=== PATIENT | male | born 1960 | race Caucasian/White ===

== ENCOUNTER 2022-08-12 17:56 | Emergency (ER) | payer SELFPAY ==
[~2022-08-12] VITALS: Ht 178 cm; Wt 66.0 kg
--- NOTE | 2022-08-12 18:09 | ED General ---
General Chief Complaint: Altered Mental Status Stated Complaint: AMS Source of Information: Patient, EMS Exam Limitations: No Limitations History of Present Illness Date Seen by Provider: Aug 12, 2022 Time Seen by Provider: 18:00 Initial Comments 62-year-old male arrives via EMS for reportedly being "in and out of consciousness." Unclear who called EMS at this time. On arrival EMS states the patient was alert, oriented and states he had a runny nose for about 10 days. On arrival he is tells me the same. He states he has a mild nonproductive cough as well. Unsure if he has had fevers or not. He is undomiciled and denies any recent sick contacts. No chest pain, shortness of breath. No change in bowel or bladder habits. Allergies and Home Medications Allergies Coded Allergies: No Known Drug Allergies (Unverified , 08/12/22) Patient Home Medication List Home Medication List Reviewed: Yes Review of Systems Review of Systems Constitutional: fever EENTM: nose congestion Respiratory: cough Cardiovascular: no symptoms reported Gastrointestinal: no symptoms reported Genitourinary: no symptoms reported Musculoskeletal: no symptoms reported Skin: no symptoms reported Psychiatric/Neurological: No Symptoms Reported Hematologic/Lymphatic: No Symptoms Reported Immunological/Allergic: no symptoms reported Past Ewwhgcc-Fjcrqu-Sobxev Hx Patient Social History Tobacco Use?: Yes Use of E-Cig and/or Vaping dev: No Substance use?: No Substance type: Hallucinogens Alcohol Use?: No Family Medical History Reviewed Nursing Family Hx No Pertinent Family Hx Physical Exam Vital Signs Vital Signs - First Documented 08/12/22 17:58 Temp 38.3 Pulse 109 Resp 20 B/P (MAP) 148/109 (122) Pulse Ox 95 O2 Delivery Room Air Capillary Refill : Height, Weight, BMI Height: '" Weight: lbs. oz. kg; BMI Method: General Appearance: No Apparent Distress, WD/WN, Other (Patient is alert, oriented to person place and time at this time. I do not see any evidence for confusion, altered consciousness) HEENT: PERRL/EOMI, TMs Normal, Normal ENT Inspection, Pharynx Normal Neck: Full Range of Motion, Normal Inspection, Non Tender, Supple Respiratory: Chest Non Tender, Lungs Clear, Normal Breath Sounds, No Accessory Muscle Use, No Respiratory Distress Cardiovascular: Regular Rate, Rhythm, No Edema, No Gallop, No JVD, No Murmur, Normal Peripheral Pulses Gastrointestinal: Normal Bowel Sounds, No Organomegaly, No Pulsatile Mass, Non Tender, Soft Neurologic/Psychiatric: Alert, Oriented x3, No Motor/Sensory Deficits Skin: Normal Color, Warm/Dry Lymphatic: No Adenopathy Focused Exam Lactate Level 08/12/22 18:10: Lactic Acid Level 1.29 Lactic Acid Level Laboratory Tests Test 08/12/22 18:10 Lactic Acid Level 1.29 MMOL/L (0.50-2.00) Progress/Results/Core Measures Suspected Sepsis SIRS Temperature: Pulse: Respiratory Rate: Laboratory Tests 08/12/22 18:10: White Blood Count 9.1 Blood Pressure / Mean: 08/12/22 18:10: Lactic Acid Level 1.29 Laboratory Tests 08/12/22 18:10: Creatinine 0.77, Platelet Count 250, Total Bilirubin 0.6 Results/Orders Lab Results Laboratory Tests Test 08/12/22 18:02 08/12/22 18:10 08/12/22 18:53 Range/Units Influenza Type A (RT-PCR) Not Detected Not Detecte Influenza Type B (RT-PCR) Not Detected Not Detecte SARS-CoV-2 RNA (RT-PCR) Not Detected Not Detecte White Blood Count 9.1 4.3-11.0 10^3/uL Red Blood Count 4.56 4.30-5.52 10^6/uL Hemoglobin 14.1 13.3-17.7 g/dL Hematocrit 43 40-54 % Mean Corpuscular Volume 95 80-99 fL Mean Corpuscular Hemoglobin 31 25-34 pg Mean Corpuscular Hemoglobin Concent 33 32-36 g/dL Red Cell Distribution Width 12.1 10.0-14.5 % Platelet Count 250 130-400 10^3/uL Mean Platelet Volume 9.5 9.0-12.2 fL Immature Granulocyte % (Auto) 0 % Neutrophils (%) (Auto) 91 H 42-75 % Lymphocytes (%) (Auto) 5 L 12-44 % Monocytes (%) (Auto) 4 0-12 % Eosinophils (%) (Auto) 0 0-10 % Basophils (%) (Auto) 0 0-10 % Neutrophils # (Auto) 8.3 H 1.8-7.8 10^3/uL Lymphocytes # (Auto) 0.4 L 1.0-4.0 10^3/uL Monocytes # (Auto) 0.4 0.0-1.0 10^3/uL Eosinophils # (Auto) 0.0 0.0-0.3 10^3/uL Basophils # (Auto) 0.0 0.0-0.1 10^3/uL Immature Granulocyte # (Auto) 0.0 0.0-0.1 10^3/uL Neutrophils % (Manual) 87 % Lymphocytes % (Manual) 7 % Monocytes % (Manual) 1 % Band Neutrophils 5 % Platelet Estimate NORMAL Clumped Platelets FEW Blood Morphology Comment NORMAL Sodium Level 136 135-145 MMOL/L Potassium Level 3.8 3.6-5.0 MMOL/L Chloride Level 102 98-107 MMOL/L Carbon Dioxide Level 28 21-32 MMOL/L Anion Gap 6 5-14 MMOL/L Blood Urea Nitrogen 17 7-18 MG/DL Creatinine 0.77 0.60-1.30 MG/DL Estimat Glomerular Filtration Rate 101 BUN/Creatinine Ratio 22 Glucose Level 111 H 70-105 MG/DL Lactic Acid Level 1.29 0.50-2.00 MMOL/L Calcium Level 9.3 8.5-10.1 MG/DL Corrected Calcium 9.6 8.5-10.1 MG/DL Total Bilirubin 0.6 0.1-1.0 MG/DL Aspartate Amino Transf (AST/SGOT) 45 H 5-34 U/L Alanine Aminotransferase (ALT/SGPT) 44 0-55 U/L Alkaline Phosphatase 62 40-136 U/L Total Protein 7.2 6.4-8.2 GM/DL Albumin 3.6 3.2-4.5 GM/DL Urine Color YELLOW Urine Clarity CLEAR Urine pH 8.0 5-9 Urine Specific [place] 1.015 L 1.016-1.022 Urine Protein NEGATIVE NEGATIVE Urine Glucose (UA) NEGATIVE NEGATIVE Urine Ketones NEGATIVE NEGATIVE Urine Nitrite NEGATIVE NEGATIVE Urine Bilirubin NEGATIVE NEGATIVE Urine Urobilinogen 2.0 < = 1.0 MG/DL Urine Leukocyte Esterase NEGATIVE NEGATIVE Urine RBC (Auto) NEGATIVE NEGATIVE Urine RBC RARE /HPF Urine WBC RARE /HPF Urine Squamous Epithelial Cells NONE /HPF Urine Crystals NONE /LPF Urine Bacteria NEGATIVE /HPF Urine Casts NONE /LPF Urine Mucus NEGATIVE /LPF Urine Culture Indicated NO My Orders Orders - EMY YOUNG DO Comprehensive Metabolic Panel (08/12/22 18:04) Covid 19 Inhouse Test (08/12/22 18:04) Lactic Acid Analyzer (08/12/22 18:04) Cbc With Automated Diff (08/12/22 18:04) Influenza A And B By Pcr (08/12/22 18:04) Ns Iv 1000 Ml (Sodium Chloride 0.9%) (08/12/22 18:15) Acetaminophen Tablet (Tylenol Tablet) (08/12/22 18:15) Chest 1 View, Ap/Pa Only (08/12/22 18:09) Manual Differential (08/12/22 18:10) Ua Culture If Indicated (08/12/22 18:33) Ceftriaxone 1 Gm Pre-Mix (Rocephin 1 Gm (08/12/22 19:00) Ct Chest W (08/12/22 18:52) Iohexol Injection (Omnipaque 350 Mg/Ml 1 (08/12/22 19:00) Received Contrast (Hold Metformin- Contr (08/12/22 19:00) Ns (Ivpb) (Sodium Chloride 0.9% Ivpb Bag (08/12/22 19:00) Sodium Chloride Flush (Catheter Flush Sy (08/12/22 19:00) Medications Given in ED Current Medications Medications Dose Ordered Sig/Moody Route Start Time Stop Time Status Last Admin Dose Admin Acetaminophen 1,000 mg ONCE ONCE PO 08/12/22 18:15 08/12/22 18:16 DC 08/12/22 18:13 1,000 MG Iohexol 75 ml ONCE ONCE IV 08/12/22 19:00 08/12/22 19:06 DC 08/12/22 19:15 74 ML Sodium Chloride 10 ml NEEDED PRN IV 08/12/22 19:00 08/12/22 19:15 10 ML Sodium Chloride 100 ml ONCE ONCE IV 08/12/22 19:00 08/12/22 19:06 DC 08/12/22 19:15 80 ML Vital Signs/I&O 08/12/22 17:58 Temp 38.3 Pulse 109 Resp 20 B/P (MAP) 148/109 (122) Pulse Ox 95 O2 Delivery Room Air Capillary Refill : Diagnostic Imaging Diagonstic Imaging: CT Plain Films/CT/US/NM/MRI: chest Comments [facility] [place], [place] NAME: [facility] REC#: [id number] PT STATUS: REG ER : 1960 PHYSICIAN: EMY YOUNG DO ADMIT DATE: 08/12/22/ER Draft Date of Exam:08/12/22 CT CHEST W PROCEDURE: CT chest with contrast only. TECHNIQUE: Multiple contiguous axial images were obtained through the chest after administration of intravenous contrast. Auto Exposure Controls were utilized during the CT exam to meet ALARA standards for radiation dose reduction. INDICATION: Right lung density on chest radiograph. Cough. COMPARISON: Chest radiograph from earlier same day FINDINGS: Rounded consolidation is identified within the posterior lateral and inferior margins of the right upper lobe. It borders the major and minor fissures. It measures 3.5 x 3.5 cm in axial dimension and extends 5.7 cm in cc dimension. Overall appearance is most suggestive of rounded pneumonia, although underlying pulmonary nodule or mass may be obscured. Remainder of the lungs are clear. No large effusion or pneumothorax is seen on either side. No other suspicious pulmonary nodules or masses are seen. Cardiomediastinal structures show normal heart size. There is no large pericardial effusion. Large hiatal hernia is noted. No pathologically enlarged or morphologically abnormal adenopathy is seen within the mediastinum, omega, nor axilla. Osseous structures show no acute abnormalities. No lytic or blastic bony lesions are seen. Included portions of the upper abdomen show punctate nonobstructive right renal calculus. IMPRESSION: 1. Focal density of the right upper lobe is identified and corresponds to opacity seen on chest radiograph from earlier same day. CT appearance is most suggestive of rounded pneumonia, although underlying pulmonary nodule or mass may be obscured. Follow-up to resolution is recommended. 2. Punctate nonobstructive right renal calculus. 3. Moderate hiatal hernia. Departure Communication (Admissions) Patient is hemodynamically stable, nontoxic. He has a nodular density in his right middle lobe, pneumonia versus mass was quite large on chest x-ray. I obtained a CT scan to confirm and it does appear to be a nodular pneumonia and not malignancy. Given antibiotics here and discharged home with oral antibiotics for community-acquired pneumonia. No evidence for PE, pneumothorax, cardiac origin. COVID flu negative. Impression Primary Impression: Community acquired pneumonia Qualified Codes: J18.9 - Pneumonia, unspecified organism Disposition: 01 HOME, SELF-CARE Condition: Stable Departure-Patient Inst. Referrals: NO,LOCAL PHYSICIAN (PCP/Family) Primary Care Physician Patient Instructions: Pneumonia, Adult (DC) Add. Discharge Instructions: Take the antibiotics as prescribed until they are gone. Use Motrin and Tylenol as needed for fevers, discomfort. Return to the emergency department for any severe shortness of breath or if your symptoms change in any other way concerning to you. All discharge instructions reviewed with patient and/or family. Voiced understanding. Scripts Ciprofloxacin HCl (Ciprofloxacin HCl) 500 Mg Tablet 500 MG PO TID for 7 Days, #21 TAB Prov: EMY YOUNG DO 08/12/22 EMY YOUNG DO Aug 12, 2022 18:09
[2022-08-12] MEDS ORDERED: ACETAMINOPHEN 500 MG TAB (TYLENOL) PO ONE (18:15)
[2022-08-12] MEDS ORDERED: NS IV 1000 ML 1,000 ML IV SCH (18:15)
[2022-08-12 18:24] LABS: BASOPHILS % (AUTO) 0 % (0-10); EOSINOPHILS % (AUTO) 0 % (0-10); HEMATOCRIT 43 % (40-54); HEMOGLOBIN 14.1 g/dL (13.3-17.7); LYMPHOCYTES # (AUTO) 0.4 10^3/uL (1.0-4.0); LYMPHOCYTES % (AUTO) 5 % (12-44); MEAN CORPUSCULAR HEMOGLOBIN 31 pg (25-34); MEAN CORPUSCULAR HGB CONC 33 g/dL (32-36); MEAN CORPUSCULAR VOLUME 95 fL (80-99); MEAN PLATELET VOLUME 9.5 fL (9.0-12.2); MONOCYTES # (AUTO) 0.4 10^3/uL (0.0-1.0); MONOCYTES % (AUTO) 4 % (0-12); NEUTROPHILS # (AUTO) 8.3 10^3/uL (1.8-7.8); NEUTROPHILS % (AUTO) 91 % (42-75); PLATELET COUNT 250 10^3/uL (130-400); WHITE BLOOD COUNT 9.1 10^3/uL (4.3-11.0)
[2022-08-12 18:32] LABS: ALBUMIN 3.6 GM/DL (3.2-4.5); POTASSIUM 3.8 MMOL/L (3.6-5.0)
[2022-08-12 18:34] LABS: CALCIUM 9.3 MG/DL (8.5-10.1)
[2022-08-12 18:35] LABS: TOTAL PROTEIN 7.2 GM/DL (6.4-8.2)
[2022-08-12 18:37] LABS: BILIRUBIN,TOTAL 0.6 MG/DL (0.1-1.0)
[2022-08-12 18:38] LABS: CREATININE SERUM 0.77 MG/DL (0.60-1.30)
--- NOTE | 2022-08-12 18:41 | Diagnostic Imaging Report ---
INDICATION: Cough. Fever. COMPARISON: None FINDINGS: Single frontal radiographic view of the chest was obtained and shows normal cardiac silhouette and pulmonary vasculature. There is masslike opacity projecting over the lateral right midlung that measures 5 x 6.3 cm. Left lung is relatively clear. There is no large effusion or pneumothorax on either side. Osseous structures show no gross acute abnormalities. IMPRESSION: 1. Masslike opacity projecting over the lateral right midlung. This could be on the basis of rounded pneumonia. Soft tissue mass is also within differential. Follow-up to resolution is advised. Dictated by: Dictated on workstation # [id number]
[2022-08-12 18:55] LABS: BAND NEUTROPHILS 5 %; LYMPHOCYTES % (MANUAL) 7 %; MONOCYTES % (MANUAL) 1 %; NEUTROPHILS % (MANUAL) 87 %; PLATELET CLUMPS FEW; PLATELET ESTIMATE NORMAL; RBC MORPH NORMAL
[2022-08-12 18:59] LABS: BILIRUBIN,URINE NEGATIVE (NEGATIVE); CLARITY,URINE CLEAR; COLOR,URINE YELLOW; GLUCOSE, URINE (UA) NEGATIVE (NEGATIVE); KETONES,URINE NEGATIVE (NEGATIVE); LEUKOCYTE ESTERASE ,URINE NEGATIVE (NEGATIVE); NITRITE,URINE NEGATIVE (NEGATIVE); PROTEIN,URINE NEGATIVE (NEGATIVE)
[2022-08-12] MEDS ORDERED: HOLD METFORMIN - RECEIVED CONTRAST 20 ML VIAL IV SCH (19:00)
[2022-08-12] MEDS ORDERED: cefTRIAXone 1 GM PRE-MIX 50 ML IV ONE (19:00)
[2022-08-12] MEDS ORDERED: NS 100 ML (IVPB) BAG IV ONE (19:00)
[2022-08-12] MEDS ORDERED: CATHETER FLUSH 10 ML SYR IV PRN (19:00)
[2022-08-12] MEDS ORDERED: IOHEXOL 350 MG/ML 100 ML (OMNIPAQUE 350) VIAL IV ONE (19:00)
[2022-08-12 19:06] LABS: BACTERIA,URINE NEGATIVE /HPF; RBC,URINE RARE /HPF; WBC,URINE RARE /HPF
--- NOTE | 2022-08-12 19:37 | Diagnostic Imaging Report ---
PROCEDURE: CT chest with contrast only. TECHNIQUE: Multiple contiguous axial images were obtained through the chest after administration of intravenous contrast. Auto Exposure Controls were utilized during the CT exam to meet ALARA standards for radiation dose reduction. INDICATION: Right lung density on chest radiograph. Cough. COMPARISON: Chest radiograph from earlier same day FINDINGS: Rounded consolidation is identified within the posterior lateral and inferior margins of the right upper lobe. It borders the major and minor fissures. It measures 3.5 x 3.5 cm in axial dimension and extends 5.7 cm in cc dimension. Overall appearance is most suggestive of rounded pneumonia, although underlying pulmonary nodule or mass may be obscured. Remainder of the lungs are clear. No large effusion or pneumothorax is seen on either side. No other suspicious pulmonary nodules or masses are seen. Cardiomediastinal structures show normal heart size. There is no large pericardial effusion. Large hiatal hernia is noted. No pathologically enlarged or morphologically abnormal adenopathy is seen within the mediastinum, omega, nor axilla. Osseous structures show no acute abnormalities. No lytic or blastic bony lesions are seen. Included portions of the upper abdomen show punctate nonobstructive right renal calculus. IMPRESSION: 1. Focal density of the right upper lobe is identified and corresponds to opacity seen on chest radiograph from earlier same day. CT appearance is most suggestive of rounded pneumonia, although underlying pulmonary nodule or mass may be obscured. Follow-up to resolution is recommended. 2. Punctate nonobstructive right renal calculus. 3. Moderate hiatal hernia. Dictated by: Dictated on workstation # [id number]
[2022-08-12] MEDS ORDERED: CIPR500T5 PO (19:46)
[2022-08-12 20:09] VITALS: BP 106/63
== END 2022-08-12 20:09 | disposition home or self-care (01) ==
LOC: EDUNIT# 17:56 → ER 17:58
DX: J18.9 Pneumonia, unspecified organism (principal); Z72.0 Tobacco use; Z20.822 Contact with and (suspected) exposure to COVID-19
CPT/HCPCS: 36415; 71045; 71260; 80053; 81000; 83605; 85007; 85027; 87636

== ENCOUNTER 2022-10-02 15:53 | Inpatient (IN) | payer OTHER ==
[~2022-10-02] VITALS: Ht 180.3 cm; Wt 70.7 kg
[~2022-10-02 15:53] MED LIST: CIPR500T5 PO
--- NOTE | 2022-10-02 16:15 | ED Chest Pain ---
General Chief Complaint: Chest Pain Stated Complaint: CHEST PAIN/TIGHTNESS,SOA Nursing Triage Note: ARRIVED VIA AMB WITH COMPLAINTS OF CHEST PAIN X1 HR THAT RADIATES INTO BACK. PT IS HOMELESS. (KAPIL SORIANO MD) History of Present Illness Date Seen by Provider: Oct 02, 2022 Time Seen by Provider: 16:14 Initial Comments 62-year-old male with PMH of homelessness, is here with complaints of right- sided chest pain that radiates to the left side of the chest and to the right side of the back. Pain began late today afternoon. Denies fever, diarrhea, abdominal pain. Patient also has associated cough and postnasal drip and congestion. Patient denies smoking. Patient states that he walks a lot and is outside all day due to homelessness. Patient reports that when he presses on his chest wall it feels sore. (KAPIL SORIANO MD) Allergies and Home Medications Allergies Coded Allergies: Penicillins (Verified Allergy, Unknown, 10/02/22) Patient Home Medication List Home Medication List Reviewed: Yes (KAPIL SORIANO MD) Ciprofloxacin HCl (Ciprofloxacin HCl) 500 Mg Tablet, 500 MG PO TID Prescribed by: EMY YOUNG MD on 08/12/221945 Review of Systems Review of Systems Constitutional: malaise EENTM: Nose Congestion Respiratory: No Symptoms Reported Cardiovascular: Chest Pain Gastrointestinal: No Symptoms Reported Genitourinary: No Symptoms Reported Musculoskeletal: no symptoms reported Skin: no symptoms reported Psychiatric/Neurological: No Symptoms Reported Endocrine: No Symptoms Reported Hematologic/Lymphatic: No Symptoms Reported (KAPIL SORIANO MD) Past Bcohdht-Hyjrrx-Dbpoff Hx Patient Social History Tobacco Use?: No Substance use?: No Alcohol Use?: Yes Alcohol Frequency: Couple times a week (KPAIL SORIANO MD) Immunizations Up To Date First/Initial COVID19 Vaccinat: UNKNOWN COVID19 Vaccine Presentation Manager: UNKNOWN (KAPIL SORIANO MD) Past Medical History Surgery/Hospitalization HX: STATES HYPOGLYCEMIA, HERNIA (KAPIL SORIANO MD) Family Medical History No Pertinent Family Hx (KAPIL SORIANO MD) Physical Exam Vital Signs Vital Signs - First Documented 10/02/22 15:58 Temp 36.3 Pulse 75 Resp 16 B/P (MAP) 122/87 (99) Pulse Ox 94 O2 Delivery Room Air (JORGE,ALEJANDRA K DO) Vital Signs Capillary Refill : Less Than 3 Seconds (KAPIL SORIANO MD) Height, Weight, BMI Height: '" Weight: lbs. oz. kg; 20.00 BMI Method: General Appearance: No Apparent Distress, WD/WN HEENT: PERRL/EOMI, Normal ENT Inspection Neck: Full Range of Motion, Normal Inspection, Non Tender Respiratory: Lungs Clear, Normal Breath Sounds, No Accessory Muscle Use, Other (Chest wall tenderness to the right and left 10th 11th 12th intercostal spaces) Cardiovascular: Regular Rate, Rhythm, No Edema, No Murmur Gastrointestinal: Normal Bowel Sounds, Non Tender, Soft Extremity: Normal Range of Motion Neurologic/Psychiatric: Alert, Oriented x3, No Motor/Sensory Deficits, Normal Mood/Affect, space engineer II-XII Norm as Tested Skin: Normal Color (KAPIL SORIANO MD) Progress/Results/Core Measures Results/Orders Lab Results Laboratory Tests Test 10/02/22 16:20 10/02/22 16:58 10/02/22 17:18 Range/Units White Blood Count 4.2 L 4.3-11.0 10^3/uL Red Blood Count 4.16 L 4.30-5.52 10^6/uL Hemoglobin 12.6 L 13.3-17.7 g/dL Hematocrit 38 L 40-54 % Mean Corpuscular Volume 92 80-99 fL Mean Corpuscular Hemoglobin 30 25-34 pg Mean Corpuscular Hemoglobin Concent 33 32-36 g/dL Red Cell Distribution Width 12.1 10.0-14.5 % Platelet Count 236 130-400 10^3/uL Mean Platelet Volume 9.5 9.0-12.2 fL Immature Granulocyte % (Auto) 1 % Neutrophils (%) (Auto) 50 42-75 % Lymphocytes (%) (Auto) 39 12-44 % Monocytes (%) (Auto) 11 0-12 % Eosinophils (%) (Auto) 0 0-10 % Basophils (%) (Auto) 0 0-10 % Neutrophils # (Auto) 2.1 1.8-7.8 10^3/uL Lymphocytes # (Auto) 1.6 1.0-4.0 10^3/uL Monocytes # (Auto) 0.4 0.0-1.0 10^3/uL Eosinophils # (Auto) 0.0 0.0-0.3 10^3/uL Basophils # (Auto) 0.0 0.0-0.1 10^3/uL Immature Granulocyte # (Auto) 0.0 0.0-0.1 10^3/uL Prothrombin Time 13.1 12.2-14.7 SEC INR Comment 0.9 0.8-1.4 Activated Partial Thromboplast Time 31 24-35 SEC D-Dimer 4.83 H 0.00-0.49 UG/ML Sodium Level 139 135-145 MMOL/L Potassium Level 4.0 3.6-5.0 MMOL/L Chloride Level 108 H 98-107 MMOL/L Carbon Dioxide Level 23 21-32 MMOL/L Anion Gap 8 5-14 MMOL/L Blood Urea Nitrogen 25 H 7-18 MG/DL Creatinine 0.76 0.60-1.30 MG/DL Estimat Glomerular Filtration Rate 102 BUN/Creatinine Ratio 33 Glucose Level 107 H 70-105 MG/DL Calcium Level 8.7 8.5-10.1 MG/DL Corrected Calcium 9.3 8.5-10.1 MG/DL Magnesium Level 2.1 1.6-2.4 MG/DL Total Bilirubin 0.2 0.1-1.0 MG/DL Aspartate Amino Transf (AST/SGOT) 37 H 5-34 U/L Alanine Aminotransferase (ALT/SGPT) 37 0-55 U/L Alkaline Phosphatase 60 40-136 U/L Troponin I 0.088 H <0.028 NG/ML Total Protein 6.0 L 6.4-8.2 GM/DL Albumin 3.2 3.2-4.5 GM/DL Influenza Type A (RT-PCR) Not Detected Not Detecte Influenza Type B (RT-PCR) Not Detected Not Detecte SARS-CoV-2 RNA (RT-PCR) Not Detected Not Detecte Urine Color YELLOW Urine Clarity CLEAR Urine pH 6.5 5-9 Urine Specific [place] 1.025 H 1.016-1.022 Urine Protein NEGATIVE NEGATIVE Urine Glucose (UA) NEGATIVE NEGATIVE Urine Ketones NEGATIVE NEGATIVE Urine Nitrite NEGATIVE NEGATIVE Urine Bilirubin NEGATIVE NEGATIVE Urine Urobilinogen 4.0 < = 1.0 MG/DL Urine Leukocyte Esterase NEGATIVE NEGATIVE Urine RBC (Auto) NEGATIVE NEGATIVE Urine RBC RARE /HPF Urine WBC RARE /HPF Urine Squamous Epithelial Cells 0-2 /HPF Urine Crystals NONE /LPF Urine Bacteria TRACE /HPF Urine Casts NONE /LPF Urine Mucus SMALL H /LPF Urine Culture Indicated NO Urine Opiates Screen NEGATIVE NEGATIVE Urine Oxycodone Screen NEGATIVE NEGATIVE Urine Methadone Screen NEGATIVE NEGATIVE Urine Propoxyphene Screen NEGATIVE NEGATIVE Urine Barbiturates Screen NEGATIVE NEGATIVE Ur Tricyclic Antidepressants Screen NEGATIVE NEGATIVE Urine Phencyclidine Screen NEGATIVE NEGATIVE Urine Amphetamines Screen POSITIVE H NEGATIVE Urine Methamphetamines Screen POSITIVE H NEGATIVE Urine Benzodiazepines Screen NEGATIVE NEGATIVE Urine Cocaine Screen NEGATIVE NEGATIVE Urine Cannabinoids Screen NEGATIVE NEGATIVE (ALEJANDRA SOUSA DO) My Orders Orders - ALEJANDRA SOUSA DO Troponin I Mikael (10/02/22 19:18) (ALEJANDRA SOUSA DO) Medications Given in ED Current Medications Medications Dose Ordered Sig/Moody Route Start Time Stop Time Status Last Admin Dose Admin Aspirin 324 mg ONCE ONCE PO 10/02/22 16:45 10/02/22 16:53 DC 10/02/22 17:09 324 MG Iohexol 100 ml ONCE ONCE IV 10/02/22 18:30 10/02/22 18:31 DC 10/02/22 18:44 67 ML Sodium Chloride 100 ml ONCE ONCE IV 10/02/22 18:30 10/02/22 18:31 DC 10/02/22 18:44 80 ML (ALEJANDRA SOUSA DO) Vital Signs/I&O 10/02/22 15:58 Temp 36.3 Pulse 75 Resp 16 B/P (MAP) 122/87 (99) Pulse Ox 94 O2 Delivery Room Air (ALEJANDRA SOUSA DO) Blood Pressure Mean: 99 Progress Progress Note : Progress Note Seen Dr. Dr. Sousa for follow-up of second troponin and CTA chest 1. ACS RULE OUT: - CXR: No acute finding - Troponin: 0.088, awaiting 2nd one - EKG x 2: no ischemic changes - CBC/ CMP unremarkable -COVID Test/rapid flu test: Negative - ASA 324mg STAT 2. ELEVATED D-DIMER: - D-dimer is 4.83 - CTA CHEST ordered 3. METHAMPHETAMINE POSITIVE: - UDS: Positive for methamphetamines -This can cause and trigger chest pain as well (KAPIL SORIANO MD) Progress Note : Progress Note 1844--ASSUMED CARE OF PT AT SHIFT CHANGE. CT PENDING. PT IS PAIN-FREE. PT HAS RECEIVED ASPIRIN, BUT NO OTHER MEDICATIONS REVIEWED ALL TEST RESULTS, NEED FOR ADMIT FOR FURTHER CARDIAC EVALUATION. PT REMAINS QUIET AND COOPERATIVE FOR ENTIRE ER STAY. NO DETERIORATION IN PT'S CONDITION DURING ER STAY. PT HAS NO COMPLAINTS OF CHEST PAIN AT ANY TIME,. DURING MY CARE OF HIM. (ALEJANDRA SOUSA DO) Initial ECG Impression Date: Oct 02, 2022 Initial ECG Impression Time: 16:01 Initial ECG Rate: 75 Initial ECG Rhythm: Normal Sinus EKG : EKG Time: 18:28 Rate: 55 Rhythm: Normal Sinus ECG Comparisson: Unchanged (ALEJANDRA SOUSA DO) Diagnostic Imaging Diagonstic Imaging: Xray Plain Films/CT/US/NM/MRI: chest Comments [facility] [place], [place] NAME: [facility] REC#: [id number] PT STATUS: REG ER : 1960 PHYSICIAN: KAPIL SORIANO MD ADMIT DATE: 10/02/22/ER Signed Date of Exam:10/02/22 CHEST 1 VIEW, AP/PA ONLY INDICATION: Chest pain. TECHNIQUE: Single view chest 5:05 PM. CORRELATION STUDY: 08/12/2022 FINDINGS: The heart size, mediastinal configuration and pulmonary vascularity are within normal limits. The previously demonstrated rounded opacity lateral aspect of the right mid to lower lung field has essentially resolved. Lungs appear generally clear at follow-up. IMPRESSION: 1. Negative appearing single view chest. Dictated by: Dictated on workstation # [id number] Dict: 10/02/221716 Trans: 10/02/221717 DO [id number] Interpreted by: BARBARA BARNETT DO Electronically signed by: BARBARA BARNETT DO 10/02/221717 (KAPIL SORIANO MD) Comments CXR--PER RADIOLOGIST REPORT PRIOR TO MY ARRIVAL FINDINGS: The heart size, mediastinal configuration and pulmonary vascularity are within normal limits. The previously demonstrated rounded opacity lateral aspect of the right mid to lower lung field has essentially resolved. Lungs appear generally clear at follow-up. IMPRESSION: 1. Negative appearing single view chest. CT CHEST ANGIOGRAM--PER RADIOLOGIST REPORT AT 1851 FINDINGS: Vascular: No filling defects within the pulmonary arteries. Thoracic aorta is normal in caliber. Calcification of the aorta and coronary vessels. Thyroid: The thyroid is normal. Mediastinum: Heart size is normal without significant pericardial effusion. No suspicious lymphadenopathy. Lungs and airways: The lungs are clear without consolidation, pleural effusion, or pneumothorax. There is mild atelectasis in the dependent lungs. The airways are normal. Upper abdomen: There is a moderate hiatal hernia. Musculoskeletal: Degenerative changes of the spine without suspicious osseous lesion or compression fracture. IMPRESSION: 1. No findings of pulmonary embolus or other acute abnormality in the chest. Reviewed: Reviewed by Me (ALEJANDRA SOUSA DO) Departure Communication (Admissions) 1932--PAGING DR. DECKER, OSTEOLOGIST 1938--SPOKE WITH DR. ALVAREZ, MANAGER [facility] FOR [facility] – [place]. ACCEPTS PT FOR ADMIT. 1942--SPOKE WITH DR. DECKER, HE WILL SEE PT IN CONSULT. ORDERS NOTED FOR ASPI RIN, PLAVIX AND TOPROL. (ALEJANDRA SOUSA DO) Impression Primary Impression: Chest pain Additional Impressions: Elevated d-dimer Methamphetamine abuse Elevated troponin Homelessness Disposition: ADMITTED INPATIENT Condition: Stable Admissions Decision to Admit Reason: Admit from ER (General) Decision to Admit/Date: Oct 02, 2022 Time/Decision to Admit Time: 19:40 (ALEJANDRA SOUSA DO) Departure-Patient Inst. Referrals: NO,LOCAL PHYSICIAN (PCP/Family) Primary Care Physician KAPIL SORIANO MD Oct 02, 2022 16:15 ALEJANDRA SOUSA DO Oct 02, 2022 19:38
[2022-10-02] MEDS ORDERED: ASPIRIN 81 MG CHEW (CHILDREN'S ASA) PO ONE (16:45)
[2022-10-02 17:00] LABS: BASOPHILS % (AUTO) 0 % (0-10); EOSINOPHILS % (AUTO) 0 % (0-10); HEMATOCRIT 38 % (40-54); HEMOGLOBIN 12.6 g/dL (13.3-17.7); LYMPHOCYTES # (AUTO) 1.6 10^3/uL (1.0-4.0); LYMPHOCYTES % (AUTO) 39 % (12-44); MEAN CORPUSCULAR HEMOGLOBIN 30 pg (25-34); MEAN CORPUSCULAR HGB CONC 33 g/dL (32-36); MEAN CORPUSCULAR VOLUME 92 fL (80-99); MEAN PLATELET VOLUME 9.5 fL (9.0-12.2); MONOCYTES # (AUTO) 0.4 10^3/uL (0.0-1.0); MONOCYTES % (AUTO) 11 % (0-12); NEUTROPHILS # (AUTO) 2.1 10^3/uL (1.8-7.8); NEUTROPHILS % (AUTO) 50 % (42-75); PLATELET COUNT 236 10^3/uL (130-400); WHITE BLOOD COUNT 4.2 10^3/uL (4.3-11.0)
[2022-10-02 17:04] LABS: ALBUMIN 3.2 GM/DL (3.2-4.5)
[2022-10-02 17:05] LABS: CALCIUM 8.7 MG/DL (8.5-10.1)
[2022-10-02 17:07] LABS: INR 0.9 (0.8-1.4); PROTHROMBIN TIME PATIENT 13.1 SEC (12.2-14.7)
[2022-10-02 17:08] LABS: BILIRUBIN,TOTAL 0.2 MG/DL (0.1-1.0)
[2022-10-02 17:10] LABS: CREATININE SERUM 0.76 MG/DL (0.60-1.30)
[2022-10-02 17:13] LABS: MAGNESIUM 2.1 MG/DL (1.6-2.4)
--- NOTE | 2022-10-02 17:19 | Diagnostic Imaging Report ---
INDICATION: Chest pain. TECHNIQUE: Single view chest 5:05 PM. CORRELATION STUDY: 08/12/2022 FINDINGS: The heart size, mediastinal configuration and pulmonary vascularity are within normal limits. The previously demonstrated rounded opacity lateral aspect of the right mid to lower lung field has essentially resolved. Lungs appear generally clear at follow-up. IMPRESSION: 1. Negative appearing single view chest. Dictated by: Dictated on workstation # [id number]
[2022-10-02 17:34] LABS: BILIRUBIN,URINE NEGATIVE (NEGATIVE); CLARITY,URINE CLEAR; COLOR,URINE YELLOW; GLUCOSE, URINE (UA) NEGATIVE (NEGATIVE); KETONES,URINE NEGATIVE (NEGATIVE); LEUKOCYTE ESTERASE ,URINE NEGATIVE (NEGATIVE); NITRITE,URINE NEGATIVE (NEGATIVE); PH,URINE 6.5 (5-9); PROTEIN,URINE NEGATIVE (NEGATIVE)
[2022-10-02 17:48] LABS: BACTERIA,URINE TRACE /HPF; RBC,URINE RARE /HPF; SQUAMOUS EPITHELIAL CELL,UR 0-2 /HPF; WBC,URINE RARE /HPF
[2022-10-02 17:59] LABS: AMPHETAMINE SCREEN, URINE POSITIVE (NEGATIVE); BARBITURATE SCREEN URINE NEGATIVE (NEGATIVE); BENZODIAZEPINES SCREEN URINE NEGATIVE (NEGATIVE); CANNABINOID SCREEN, URINE NEGATIVE (NEGATIVE); COCAINE SCREEN URINE NEGATIVE (NEGATIVE); METHADONE STAT NEGATIVE (NEGATIVE); OPIATE SCREEN URINE NEGATIVE (NEGATIVE); OXYCODONE STAT NEGATIVE (NEGATIVE); PROPOXYPHENE STAT NEGATIVE (NEGATIVE); TRICYCLIC ANTIDEPRESSANTS SCRE NEGATIVE (NEGATIVE)
[2022-10-02] MEDS ORDERED: IOHEXOL 350 MG/ML 100 ML (OMNIPAQUE 350) VIAL IV ONE (18:30)
[2022-10-02] MEDS ORDERED: HOLD METFORMIN - RECEIVED CONTRAST 20 ML VIAL IV SCH (18:30)
[2022-10-02] MEDS ORDERED: NS 100 ML (IVPB) BAG IV ONE (18:30)
--- NOTE | 2022-10-02 18:51 | Diagnostic Imaging Report ---
EXAMINATION: CT angiography of the chest. TECHNIQUE: Contrast-enhanced thin section helical images were obtained through the chest with intravenous contrast timed for the optimal opacification of the arterial structures per CTA protocol. Post-processing, reconstructions and interpretation of angiographic images of the vessels was performed. 3D MIP reconstructions were performed and reviewed. All CT scans use one or more of the following dose optimizing techniques: Automated exposure control, MA and/or KvP adjustment based on a patient size and exam type, or iterative reconstruction. HISTORY: Chest pain. COMPARISON: None available. FINDINGS: Vascular: No filling defects within the pulmonary arteries. Thoracic aorta is normal in caliber. Calcification of the aorta and coronary vessels. Thyroid: The thyroid is normal. Mediastinum: Heart size is normal without significant pericardial effusion. No suspicious lymphadenopathy. Lungs and airways: The lungs are clear without consolidation, pleural effusion, or pneumothorax. There is mild atelectasis in the dependent lungs. The airways are normal. Upper abdomen: There is a moderate hiatal hernia. Musculoskeletal: Degenerative changes of the spine without suspicious osseous lesion or compression fracture. IMPRESSION: 1. No findings of pulmonary embolus or other acute abnormality in the chest. Dictated by: Dictated on workstation # [id number]
[2022-10-02] MEDS ORDERED: CLOPIDOGREL 300 MG (PLAVIX) TABLET PO ONE (20:00)
[2022-10-02] MEDS ORDERED: ONDANSETRON 4 MG/2 ML (SDV) Z0FRAN IVP PRN (21:00)
[2022-10-02] MEDS ORDERED: morphine INJ 4 MG/ML 1 ML (VIAL/SYRINGE) IV PRN ×2 (21:00→21:15)
[2022-10-02] MEDS ORDERED: NITROGLYCERIN 0.4 MG SL TABS BTL 25'S SL PRN ×2 (21:00→21:15)
[2022-10-02] MEDS ORDERED: CATHETER FLUSH 10 ML SYR IVP PRN (21:15)
[2022-10-02] MEDS ORDERED: ONDANSETRON 4 MG/2 ML (SDV) Z0FRAN IV PRN (21:15)
[2022-10-02] MEDS: CATHETER FLUSH 10 ML SYR IVP SCH (22:00)
[2022-10-02 23:31] VITALS: BP 120/72
[2022-10-03] VITALS (11 sets, daily range): BP systolic 104–152; BP diastolic 68–95
[2022-10-03 05:38] LABS: TRIGLYCERIDES 52 MG/DL (<150); VLDL CHOLESTEROL 10 MG/DL (5-40)
[2022-10-03 05:43] LABS: CHOLESTEROL 113 MG/DL (< 200)
[2022-10-03 05:44] LABS: HDL CHOLESTEROL 42 MG/DL (40-60)
[2022-10-03] MEDS ORDERED: LIDOCAINE 1% INJ 30 ML (XYLOCAINE) VIAL ONE (08:41)
[2022-10-03] MEDS ORDERED: HEParin (CATH LAB) 2,000 ML IV ONE (08:42)
[2022-10-03] MEDS ORDERED: ASPIRIN E.C. 81 MG (ECOTRIN) TAB PO SCH ×2 (09:00)
[2022-10-03] MEDS ORDERED: CLOPIDOGREL 75 MG (PLAVIX) TABLET PO SCH (09:00)
[2022-10-03] MEDS: CATHETER FLUSH 10 ML SYR IVP SCH ×2 (09:32→14:00)
--- NOTE | 2022-10-03 09:57 | Consultation-Cardiology ---
HPI-Cardiology Cardiology Consultation Date of Consultation 10/03/22 Date of Admission Time Seen by Provider: 09:55 Indication: Chest pain HPI 62-year-old gentleman with no significant past medical history, not taking any medication, started to have chest pain described as dull in nature in the retrosternal area, shortness of breath, came into the emergency room, no acute EKG changes but noted to have mild elevation in troponin. This morning he was feeling better, no further episodes of chest pain were noted. Home Medications & Allergies Allergies: Coded Allergies: Penicillins (Verified Allergy, Unknown, 10/02/22) Home Medication List Reviewed: Yes [id number] Hx Patient Social History Marital Status: Employed/Student: unemployed Have you traveled recently?: No Alcohol Use?: Yes Past Medical History Discussed below Family Medical History Significant Family History: No Pertinent Family Hx Review of Systems-General Review of Systems Constitutional: malaise EENTM: see HPI, no symptoms reported Respiratory: no symptoms reported, see HPI, short of breath Cardiovascular: chest pain Gastrointestinal: no symptoms reported, see HPI Genitourinary: no symptoms reported, see HPI Musculoskeletal: no symptoms reported Skin: no symptoms reported Psychiatric/Neurological: No Symptoms Reported Reviewed Test Results Reviewed Test Results Lab Laboratory Tests Test 10/02/22 16:20 10/02/22 16:58 10/02/22 17:18 10/02/22 19:40 Range/Units White Blood Count 4.2 L 4.3-11.0 10^3/uL Red Blood Count 4.16 L 4.30-5.52 10^6/uL Hemoglobin 12.6 L 13.3-17.7 g/dL Hematocrit 38 L 40-54 % Mean Corpuscular Volume 92 80-99 fL Mean Corpuscular Hemoglobin 30 25-34 pg Mean Corpuscular Hemoglobin Concent 33 32-36 g/dL Red Cell Distribution Width 12.1 10.0-14.5 % Platelet Count 236 130-400 10^3/uL Mean Platelet Volume 9.5 9.0-12.2 fL Immature Granulocyte % (Auto) 1 % Neutrophils (%) (Auto) 50 42-75 % Lymphocytes (%) (Auto) 39 12-44 % Monocytes (%) (Auto) 11 0-12 % Eosinophils (%) (Auto) 0 0-10 % Basophils (%) (Auto) 0 0-10 % Neutrophils # (Auto) 2.1 1.8-7.8 10^3/uL Lymphocytes # (Auto) 1.6 1.0-4.0 10^3/uL Monocytes # (Auto) 0.4 0.0-1.0 10^3/uL Eosinophils # (Auto) 0.0 0.0-0.3 10^3/uL Basophils # (Auto) 0.0 0.0-0.1 10^3/uL Immature Granulocyte # (Auto) 0.0 0.0-0.1 10^3/uL Prothrombin Time 13.1 12.2-14.7 SEC INR Comment 0.9 0.8-1.4 Activated Partial Thromboplast Time 31 24-35 SEC D-Dimer 4.83 H 0.00-0.49 UG/ML Sodium Level 139 135-145 MMOL/L Potassium Level 4.0 3.6-5.0 MMOL/L Chloride Level 108 H 98-107 MMOL/L Carbon Dioxide Level 23 21-32 MMOL/L Anion Gap 8 5-14 MMOL/L Blood Urea Nitrogen 25 H 7-18 MG/DL Creatinine 0.76 0.60-1.30 MG/DL Estimat Glomerular Filtration Rate 102 BUN/Creatinine Ratio 33 Glucose Level 107 H 70-105 MG/DL Calcium Level 8.7 8.5-10.1 MG/DL Corrected Calcium 9.3 8.5-10.1 MG/DL Magnesium Level 2.1 1.6-2.4 MG/DL Total Bilirubin 0.2 0.1-1.0 MG/DL Aspartate Amino Transf (AST/SGOT) 37 H 5-34 U/L Alanine Aminotransferase (ALT/SGPT) 37 0-55 U/L Alkaline Phosphatase 60 40-136 U/L Troponin I 0.088 H 0.092 H <0.028 NG/ML Total Protein 6.0 L 6.4-8.2 GM/DL Albumin 3.2 3.2-4.5 GM/DL Influenza Type A (RT-PCR) Not Detected Not Detecte Influenza Type B (RT-PCR) Not Detected Not Detecte SARS-CoV-2 RNA (RT-PCR) Not Detected Not Detecte Urine Color YELLOW Urine Clarity CLEAR Urine pH 6.5 5-9 Urine Specific [place] 1.025 H 1.016-1.022 Urine Protein NEGATIVE NEGATIVE Urine Glucose (UA) NEGATIVE NEGATIVE Urine Ketones NEGATIVE NEGATIVE Urine Nitrite NEGATIVE NEGATIVE Urine Bilirubin NEGATIVE NEGATIVE Urine Urobilinogen 4.0 < = 1.0 MG/DL Urine Leukocyte Esterase NEGATIVE NEGATIVE Urine RBC (Auto) NEGATIVE NEGATIVE Urine RBC RARE /HPF Urine WBC RARE /HPF Urine Squamous Epithelial Cells 0-2 /HPF Urine Crystals NONE /LPF Urine Bacteria TRACE /HPF Urine Casts NONE /LPF Urine Mucus SMALL H /LPF Urine Culture Indicated NO Urine Opiates Screen NEGATIVE NEGATIVE Urine Oxycodone Screen NEGATIVE NEGATIVE Urine Methadone Screen NEGATIVE NEGATIVE Urine Propoxyphene Screen NEGATIVE NEGATIVE Urine Barbiturates Screen NEGATIVE NEGATIVE Ur Tricyclic Antidepressants Screen NEGATIVE NEGATIVE Urine Phencyclidine Screen NEGATIVE NEGATIVE Urine Amphetamines Screen POSITIVE H NEGATIVE Urine Methamphetamines Screen POSITIVE H NEGATIVE Urine Benzodiazepines Screen NEGATIVE NEGATIVE Urine Cocaine Screen NEGATIVE NEGATIVE Urine Cannabinoids Screen NEGATIVE NEGATIVE Test 10/03/22 00:28 10/03/22 05:09 Range/Units Troponin I 0.082 H 0.088 H <0.028 NG/ML Triglycerides Level 52 <150 MG/DL Cholesterol Level 113 < 200 MG/DL LDL Cholesterol Direct 57 1-129 MG/DL VLDL Cholesterol 10 5-40 MG/DL HDL Cholesterol 42 40-60 MG/DL Physical Exam Physical Exam Vital Signs Vital Signs - First Documented 10/02/22 15:58 Temp 36.3 Pulse 75 Resp 16 B/P (MAP) 122/87 (99) Pulse Ox 94 O2 Delivery Room Air Capillary Refill : Less Than 3 Seconds Height, Weight, BMI Height: '" Weight: lbs. oz. kg; 21.74 BMI Method: General Appearance: No Apparent Distress, WD/WN HEENT: PERRL/EOMI, Normal ENT Inspection Neck: Full Range of Motion, Normal Inspection, Non Tender Respiratory: Lungs Clear, Normal Breath Sounds, No Accessory Muscle Use, Other (Chest wall tenderness to the right and left 10th 11th 12th intercostal spaces) Cardiovascular: Regular Rate, Rhythm, No Edema, No Murmur Gastrointestinal: Normal Bowel Sounds, Non Tender, Soft Extremity: Normal Range of Motion Neurologic/Psychiatric: Alert, Oriented x3, No Motor/Sensory Deficits, Normal Mood/Affect, demolition specialist II-XII Norm as Tested Skin: Normal Color A/P-Cardiology Admission Diagnosis Chest pain Non-ST elevation myocardial infarction Coronary artery disease Assessment/Plan Chest pain, non-ST elevation myocardial infarction No acute EKG changes, mild elevation in troponin And plan to proceed with cardiac catheterization possible PTCA Coronary artery disease, no known previous history of heart disease. Planning to proceed with cardiac catheterization I will evaluate 2D echo today History of tobaccoism in the remote past. JUAN JENKINS MD Oct 03, 2022 09:57
--- NOTE | 2022-10-03 09:58 | Cardiac Procedure Note-CS/ASA ---
Pre-Procedure Note Pre-Op Procedure Note Date of Available H&P: Oct 03, 2022 Date H&P Reviewed: Oct 03, 2022 Time H&P Reviewed: 09:57 History & Physical: H&P Reviewed, Patient Examed, No changes noted Pre-Operative Diagnosis: NSTMI Conscious Sedation Pre-Proced Time 09:57 ASA Score 3 For ASA 3 and 4: Consider anesthesia and medical clearance. Also, for patients with a history of failed moderate sedation consider anesthesia. Airway Lungs Heart ASA score ASA 1: a normal healthy patient ASA 2: a patient with a mild systemic disease (mid diabetes, controlled hypertension, obesity ASA 3: a patient with a severe systemic disease that limits activity (angina, COPD, prior Myocardial infarction) ASA 4: a patient with an incapacitating disease that is a constant threat to life (CHF, renal failure) ASA 5: a moribund patient not expected to survive 24 hrs. (ruptured aneurysm) ASA 6: a declared brain- patient whose organs are being harvested. For emergent operations, add the letter E after the classification Mallampati Classification Grade 3 Sedation Plan Analgesia, Amnesia, Plan communicated to team members, Discussed options with patient/fam, Discussed risks with patient/fam The patient is an appropriate candidate to undergo the planned procedure, sedation, and anesthesia. The patient immediately re-assessed prior to indication. JUAN JENKINS MD Oct 03, 2022 09:58
--- NOTE | 2022-10-03 11:19 | History & Physical ---
HPI History of Present Illness: Source: patient, spouse Exam Limitations: no limitations Date seen by provider: Oct 03, 2022 Time Seen by Provider: 11:00 Attending Physician [place] PCP Admitting Physician: Sheri Grajeda MD Attending Physician: Sheri Grajeda MD Consult Date of Admission Oct 02, 2022 at 19:39 Home Medications Home Medications Reviewed patient Home Medication Reconciliation performed by pharmacy medication reconciliations fuel cell technician and/or nursing. Patients Allergies have been reviewed. Allergies Coded Allergies: Penicillins (Verified Allergy, Unknown, 10/02/22) [id number] Hx Patient Social History Marrital Status: Employed/Student: unemployed Alcohol Use?: Yes Have you traveled recently?: No Immunizations Up To Date Influenza Vaccine Up-to-Date: No; Not Current First/Initial COVID19 Vaccinat: UNKNOWN COVID19 Vaccine Infantry Unit Leader: MODERNA Family Medical History Significant Family History: No Pertinent Family Hx Physical Exam-([facility]) Physical Exam Vital Signs VS - Last 72 Hours, by Label 10/02/22 10/02/22 10/02/22 10/02/22 15:58 20:43 21:24 21:30 Temp 36.3 36.3 Pulse 75 56 48 Resp 16 16 B/P (MAP) 122/87 (99) 141/86 Pulse Ox 94 99 96 O2 Delivery Room Air Room Air Room Air 10/02/22 10/03/22 10/03/22 10/03/22 23:31 01:11 03:29 07:00 Temp 37.1 36.6 Pulse 64 62 66 60 Resp 16 18 B/P (MAP) 120/72 (88) 126/90 (102) Pulse Ox 98 100 O2 Delivery Room Air Room Air 10/03/22 10/03/22 07:46 08:00 Temp 36.0 Pulse 68 Resp 18 B/P (MAP) 152/95 (114) Pulse Ox 93 9 O2 Delivery Room Air Room Air Capillary Refill : Less Than 3 Seconds Assessment/Plan Assessment/Plan (1) NSTEMI (non-ST elevated myocardial infarction) (2) Methamphetamine abuse Status: Acute (3) Homelessness Status: Acute SHERI GRAJEDA MD Oct 03, 2022 11:19
[2022-10-03] MEDS ORDERED: VERAPAMIL 5 MG/2 ML (CALAN) VIAL IV ONE (12:07)
[2022-10-03] MEDS ORDERED: fentaNYL INJ 100 MCG/2 ML AMP ONE (12:07)
[2022-10-03] MEDS ORDERED: MIDAZOLAM 5 MG/5 ML (VERSED) VIAL ONE (12:08)
[2022-10-03] MEDS ORDERED: NITRO DRIP 25000 MCG/D5W 250 ML IV ONE (12:08)
[2022-10-03] MEDS ORDERED: HEParin 1000 UNIT/ML (10ML VIAL) FOR BOLUS ONE (12:08)
[2022-10-03] MEDS ORDERED: NS IV 1000 ML 1,000 ML ONE (12:11)
--- NOTE | 2022-10-03 12:42 | Cardiac Cath Report ---
Cardiac Cath Report Physician (s)/Senior Electrical Estimator (s) Physician JUAN JENKINS MD Pre-Procedure Diagnosis Pre-Procedure Diagnosis: NSTMI Post-Procedure Note Procedure Start Date: Oct 03, 2022 Name of Procedure: [facility] Findings/Procedure Note PROCEDURE NOTE: 62-year-old gentleman with no significant cardiac history admitted with chest pain, had mild elevation in troponin, cardiac catheterization was advised. After explaining the procedure to the patient, all pros and cons were explained, all questions were answered. The patient signed the consent and then he was placed in the cardiac catheterization laboratory. Groin was prepped in SL fashion local anesthesia was used. Sheath placed in the right radial artery, [place] catheter was advanced to the left ventricular cavity, pressure was measured, pullback LV to aorta was done, engage the right and left coronary system, angiogram was done. At the end of the procedure the sheath was removed. Vascular band was used FINDINGS: Hemodynamics LV 85/6, end-diastolic pressure of 6 Aorta 93/57 mean of 72 ANATOMY: Left Main is free of obstructive disease Left Anterior Descending is free of obstructive disease with slow flow in the distal LAD probably due to small vessel disease Left Circumflex is free of obstructive disease Right Coronary Artery is free of obstructive disease LV Gram was not done, pressure was measured CONCLUSION: 1. Mild coronary artery disease small vessel disease in the distal LAD nonobstructive disease 2. Dominant right coronary artery 3. Borderline hypotension and low end-diastolic pressure due to hypovolemia DISCUSSION AND RECOMMENDATION: Troponin level is probably due to hypotension and hypovolemia. No obstructive coronary artery disease was noted Anesthesia Type: Conscious Sedation Estimated blood loss (mL): 10 ml Contrast Amount: 20 ml Total Radiation Dose: 154 mGy Post-Procedure Diagnosis Post-operative diagnosis: Chest pain Type II myocardial infarction Hypotension JUAN JENKINS MD Oct 03, 2022 12:41
--- NOTE | 2022-10-03 12:43 | Short Stay Summary ---
HPI History of Present Illness: 62 yo M that presented to ER with chest pain that came on suddenly. States that he has not had this happened in the past. He has never had a cardiac workup. States that he is not sure about heart disease history in his family. The chest pain was accompied with shortness of breath. Denies any pain in arm or neck. Source: patient, spouse Exam Limitations: no limitations Date seen by provider: Oct 03, 2022 Time Seen by Provider: 10:05 Attending Physician [place] PCP Admitting Physician: Sheri Grajeda MD Attending Physician: Sheri Grajeda MD Consult Date of Admission Oct 02, 2022 at 19:39 Home Medications Home Medications Reviewed patient Home Medication Reconciliation performed by pharmacy medication reconciliations gyroscopic engineering technician and/or nursing. Patients Allergies have been reviewed. Allergies Coded Allergies: Penicillins (Verified Allergy, Unknown, 10/02/22) [id number] Hx Patient Social History Marrital Status: Living Status: Homeless Employed/Student: unemployed Alcohol Use?: Yes Have you traveled recently?: No Immunizations Up To Date Influenza Vaccine Up-to-Date: No; Not Current First/Initial COVID19 Vaccinat: UNKNOWN COVID19 Vaccine Vascular Surgery Physician: MODERNA Family Medical History Significant Family History: No Pertinent Family Hx Review of Systems ([facility]) Constitutional: no symptoms reported; No chills, No fever, No malaise EENTM: no symptoms reported; No mouth pain, No nose congestion, No nose pain Respiratory: short of breath (now resolved) Cardiovascular: chest pain (now resolved), edema; No palpitations Gastrointestinal: no symptoms reported; No abdominal pain, No constipation, No diarrhea, No loss of appetite, No nausea, No vomiting Genitourinary: no symptoms reported; No dysuria, No frequency, No hematuria Musculoskeletal: no symptoms reported Skin: no symptoms reported Psychiatric/Neurological: Anxiety Reviewed Test Results Reviewed Test Results Lab Laboratory Tests Test 10/02/22 16:20 10/02/22 16:58 10/02/22 17:18 10/02/22 19:40 Range/Units White Blood Count 4.2 L 4.3-11.0 10^3/uL Red Blood Count 4.16 L 4.30-5.52 10^6/uL Hemoglobin 12.6 L 13.3-17.7 g/dL Hematocrit 38 L 40-54 % Mean Corpuscular Volume 92 80-99 fL Mean Corpuscular Hemoglobin 30 25-34 pg Mean Corpuscular Hemoglobin Concent 33 32-36 g/dL Red Cell Distribution Width 12.1 10.0-14.5 % Platelet Count 236 130-400 10^3/uL Mean Platelet Volume 9.5 9.0-12.2 fL Immature Granulocyte % (Auto) 1 % Neutrophils (%) (Auto) 50 42-75 % Lymphocytes (%) (Auto) 39 12-44 % Monocytes (%) (Auto) 11 0-12 % Eosinophils (%) (Auto) 0 0-10 % Basophils (%) (Auto) 0 0-10 % Neutrophils # (Auto) 2.1 1.8-7.8 10^3/uL Lymphocytes # (Auto) 1.6 1.0-4.0 10^3/uL Monocytes # (Auto) 0.4 0.0-1.0 10^3/uL Eosinophils # (Auto) 0.0 0.0-0.3 10^3/uL Basophils # (Auto) 0.0 0.0-0.1 10^3/uL Immature Granulocyte # (Auto) 0.0 0.0-0.1 10^3/uL Prothrombin Time 13.1 12.2-14.7 SEC INR Comment 0.9 0.8-1.4 Activated Partial Thromboplast Time 31 24-35 SEC D-Dimer 4.83 H 0.00-0.49 UG/ML Sodium Level 139 135-145 MMOL/L Potassium Level 4.0 3.6-5.0 MMOL/L Chloride Level 108 H 98-107 MMOL/L Carbon Dioxide Level 23 21-32 MMOL/L Anion Gap 8 5-14 MMOL/L Blood Urea Nitrogen 25 H 7-18 MG/DL Creatinine 0.76 0.60-1.30 MG/DL Estimat Glomerular Filtration Rate 102 BUN/Creatinine Ratio 33 Glucose Level 107 H 70-105 MG/DL Calcium Level 8.7 8.5-10.1 MG/DL Corrected Calcium 9.3 8.5-10.1 MG/DL Magnesium Level 2.1 1.6-2.4 MG/DL Total Bilirubin 0.2 0.1-1.0 MG/DL Aspartate Amino Transf (AST/SGOT) 37 H 5-34 U/L Alanine Aminotransferase (ALT/SGPT) 37 0-55 U/L Alkaline Phosphatase 60 40-136 U/L Troponin I 0.088 H 0.092 H <0.028 NG/ML Total Protein 6.0 L 6.4-8.2 GM/DL Albumin 3.2 3.2-4.5 GM/DL Influenza Type A (RT-PCR) Not Detected Not Detecte Influenza Type B (RT-PCR) Not Detected Not Detecte SARS-CoV-2 RNA (RT-PCR) Not Detected Not Detecte Urine Color YELLOW Urine Clarity CLEAR Urine pH 6.5 5-9 Urine Specific [place] 1.025 H 1.016-1.022 Urine Protein NEGATIVE NEGATIVE Urine Glucose (UA) NEGATIVE NEGATIVE Urine Ketones NEGATIVE NEGATIVE Urine Nitrite NEGATIVE NEGATIVE Urine Bilirubin NEGATIVE NEGATIVE Urine Urobilinogen 4.0 < = 1.0 MG/DL Urine Leukocyte Esterase NEGATIVE NEGATIVE Urine RBC (Auto) NEGATIVE NEGATIVE Urine RBC RARE /HPF Urine WBC RARE /HPF Urine Squamous Epithelial Cells 0-2 /HPF Urine Crystals NONE /LPF Urine Bacteria TRACE /HPF Urine Casts NONE /LPF Urine Mucus SMALL H /LPF Urine Culture Indicated NO Urine Opiates Screen NEGATIVE NEGATIVE Urine Oxycodone Screen NEGATIVE NEGATIVE Urine Methadone Screen NEGATIVE NEGATIVE Urine Propoxyphene Screen NEGATIVE NEGATIVE Urine Barbiturates Screen NEGATIVE NEGATIVE Ur Tricyclic Antidepressants Screen NEGATIVE NEGATIVE Urine Phencyclidine Screen NEGATIVE NEGATIVE Urine Amphetamines Screen POSITIVE H NEGATIVE Urine Methamphetamines Screen POSITIVE H NEGATIVE Urine Benzodiazepines Screen NEGATIVE NEGATIVE Urine Cocaine Screen NEGATIVE NEGATIVE Urine Cannabinoids Screen NEGATIVE NEGATIVE Test 10/03/22 00:28 10/03/22 05:09 Range/Units Troponin I 0.082 H 0.088 H <0.028 NG/ML Triglycerides Level 52 <150 MG/DL Cholesterol Level 113 < 200 MG/DL LDL Cholesterol Direct 57 1-129 MG/DL VLDL Cholesterol 10 5-40 MG/DL HDL Cholesterol 42 40-60 MG/DL Physical Exam-([facility]) Physical Exam Vital Signs VS - Last 72 Hours, by Label 10/02/22 10/02/22 10/02/22 10/02/22 15:58 20:43 21:24 21:30 Temp 36.3 36.3 Pulse 75 56 48 Resp 16 16 B/P (MAP) 122/87 (99) 141/86 Pulse Ox 94 99 96 O2 Delivery Room Air Room Air Room Air 10/02/22 10/03/22 10/03/22 10/03/22 23:31 01:11 03:29 07:00 Temp 37.1 36.6 Pulse 64 62 66 60 Resp 16 18 B/P (MAP) 120/72 (88) 126/90 (102) Pulse Ox 98 100 O2 Delivery Room Air Room Air 10/03/22 10/03/22 07:46 08:00 Temp 36.0 Pulse 68 Resp 18 B/P (MAP) 152/95 (114) Pulse Ox 93 9 O2 Delivery Room Air Room Air Capillary Refill : Less Than 3 Seconds General Appearance: WD/WN, no apparent distress HEENT: PERRL/EOMI Neck: non-tender, full range of motion, supple Respiratory: chest non-tender, lungs clear, normal breath sounds, no respiratory distress, no accessory muscle use Cardiovascular: normal peripheral pulses, no murmur, bradycardia Gastrointestinal: normal bowel sounds, soft Back: no CVA tenderness Extremities: normal inspection, no calf tenderness, normal capillary refill, pedal edema (1+ pitting edema) Neurologic/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, no motor/sensory deficits, alert, normal mood/affect, oriented x 3 Skin: normal color, warm/dry Lymphatic: no adenopathy Short Stay Diagnosis Discharge Diagnosis-Short Stay Admission Diagnosis See problem list Final Discharge Diagnosis See Above Conclusion Plan See problem list Assessment/Plan Assessment/Plan Admission Status: Observation (1) NSTEMI (non-ST elevated myocardial infarction) Status: Acute Assessment & Plan: - Cardiology consulted, appreciate recommendations, Cath today (2) Methamphetamine abuse Status: Acute Assessment & Plan: - Discussed the need for cessation (3) Homelessness Status: Acute Assessment & Plan: - SW consulted SHERI GRAJEDA MD Oct 03, 2022 12:43
[2022-10-03] MEDS ORDERED: CLOP75TA28 PO (12:45)
[2022-10-03] MEDS ORDERED: ASPI-1238 PO (12:45)
[2022-10-03] MEDS ORDERED: MTP25TSR PO (12:45)
[2022-10-03] MEDS ORDERED: NS IV 1000 ML 1,000 ML IV SCH (12:45)
--- NOTE | 2022-10-03 12:46 | Discharge Summary ---
Discharge [facility] Reconcile Patient Problems Problems Reviewed?: Yes Discharge Medications New, Converted or Re-Newed RX: Transmitted to Pharmacy New Medications: Aspirin (Aspirin EC) 81 Mg Tablet.dr 81 MG PO DAILY, #30 TAB Clopidogrel Bisulfate (Clopidogrel) 75 Mg Tablet 75 MG PO DAILY, #30 TAB Metoprolol Succinate (Metoprolol Succinate) 25 Mg Tab.er.24h 25 MG PO DAILY, #30 TAB Discontinued Medications: Ciprofloxacin HCl (Ciprofloxacin HCl) 500 Mg Tablet 500 MG PO TID for 7 Days, #21 TAB Patient Instructions Goal/Follow Up Appt: Ian PCP 1-2 weeks Activity & Diet Discharge Diet: Cardiac Diet Activity as Tolerated: Yes SHERI ALVAREZ MD Oct 03, 2022 12:46
== END 2022-10-03 18:06 | disposition home or self-care (01) | DRG 282 ==
LOC: EDUNIT# 15:53 → ER 15:57 → CSD 19:39
PROVIDERS: ADMIT Family Medicine; ATTEND Family Medicine
PROC: 4A023N7 Measurement of Cardiac Sampling and Pressure, Left Heart, Percutaneous Approach (ICD-10-PCS; principal; 2022-10-03)
PROC: B2111ZZ Fluoroscopy of Multiple Coronary Arteries using Low Osmolar Contrast (ICD-10-PCS; 2022-10-03)
DX: I21.A1 Myocardial infarction type 2 (principal); F15.10 Other stimulant abuse, uncomplicated; Z59.00 Homelessness unspecified; Z20.822 Contact with and (suspected) exposure to COVID-19; I95.9 Hypotension, unspecified; I25.10 Atherosclerotic heart disease of native coronary artery without angina pectoris; Z87.891 Personal history of nicotine dependence
CPT/HCPCS: 36415; 71045; 71275; 80053; 80061; 80306; 81000; 83735; 84484; 85025; 85379; 85610; 85730; 87636; 93005; 93041; 93458

== ENCOUNTER 2022-10-21 14:44 | Emergency (ER) | payer SELFPAY ==
[~2022-10-21] VITALS: Ht 180 cm; Wt 74.0 kg
[~2022-10-21 14:44] MED LIST changes: +ASPI-1238 PO; +CLOP75TA28 PO; +MTP25TSR PO
[2022-10-21] MEDS ORDERED: ASPIRIN 81 MG CHEW (CHILDREN'S ASA) PO ONE (15:00)
[2022-10-21] MEDS ORDERED: NITROGLYCERIN 0.4 MG SL TABS BTL 25'S SL PRN (15:00)
--- NOTE | 2022-10-21 15:01 | ED Chest Pain ---
General Chief Complaint: Cardiac/General Problems Stated Complaint: CHEST PAINS | HEART ATTACK 3 WKS AGO Source: patient (SOMEWHAT LIMITED HISTORIAN) History of Present Illness Date Seen by Provider: Oct 21, 2022 Time Seen by Provider: 14:51 Initial Comments PT ARRIVES VIA POV --SENT FROM [facility] C/O CHEST PAIN SINCE YESTERDAY PAIN IS CONSTANT, BUT IS WORSE WITH CERTAIN ACTIVITIES OR POSITIONS STATES PAIN WAS WORSE YESTERDAY AND IT WAS SHARP. TODAY IS "JUST A HURTIN""--PAIN IS IN THE CENTER OF HIS CHEST AND ALL ACROSS HIS UPPER BACK BETWEEN HIS SHOULDER BLADES RATES PAIN "3 1/2" TODAY C/O SHORTNESS OF BREATH C/O NAUSEA, NO VOMITING NO SWEATS HAS BEEN HAVING SOME LEG SWELLING OF BOTH LEGS, BUT LATELY HIS RIGHT LEG HAS BEEN MORE SWOLLEN THAN HIS LEFT LEG. NO CALF OR LEG PAIN C/O HEADACHE C/O "HEARTBURN" PT WAS ADMITTED HERE 10/02/22 WITH CHEST PAIN AND HAD ELEVATED TROPONIN CARDIAC CATH WAS DONE 10/03/[address] JENKINS AND HAS MILD, NON-OBSTRUCTIVE DISEASE PT IS HOMELESS AND IS CURRENTLY STAYING AT [facility] SEVERAL PEOPLE THERE HAVE BEEN SICK PCP: [facility] Allergies and Home Medications Allergies Coded Allergies: Penicillins (Verified Allergy, Unknown, 10/02/22) Patient Home Medication List Home Medication List Reviewed: Yes Aspirin (Aspirin EC) 81 Mg Tablet., 81 MG PO DAILY Prescribed by: SHERI ALVAREZ on 10/03/22 1245 Clopidogrel Bisulfate (Clopidogrel) 75 Mg Tablet, 75 MG PO DAILY Prescribed by: SHERI ALVAREZ on 10/03/22 1245 Metoprolol Succinate (Metoprolol Succinate) 25 Mg Tab.er.24h, 25 MG PO DAILY Prescribed by: SHERI ALVAREZ on 10/03/22 1245 Pantoprazole Sodium (Protonix) 40 Mg Tablet., 40 MG PO DAILY Prescribed by: ALEJANDRA PATEL on 10/21/221956 Review of Systems Review of Systems Constitutional: no symptoms reported EENTM: No Symptoms Reported Respiratory: See HPI, Shortness of Air Cardiovascular: See HPI, Chest Pain, Edema; Denies Lightheadedness, Denies Palpitations, Denies Syncope Gastrointestinal: See HPI, Nausea; Denies Vomiting Genitourinary: No Symptoms Reported Musculoskeletal: see HPI, back pain Skin: no symptoms reported Psychiatric/Neurological: No Symptoms Reported Endocrine: No Symptoms Reported Hematologic/Lymphatic: No Symptoms Reported Past Aborsiw-Xqmpmg-Vledht Hx Patient Social History Tobacco Use?: Yes Tobacco type used: Cigarettes Smoking Status: Former Smoker Use of E-Cig and/or Vaping dev: No Use of E-Cig and/or Vaping Milo: Never a User Substance use?: Yes Substance type: Amphetamines, Methamphetamine Additional substance use comme: UDS + FOR AMPHETAMINES/METH ON 10/21/22 Alcohol Use?: Yes Alcohol Frequency: Once in a while Immunizations Up To Date First/Initial COVID19 Vaccinat: UNKNOWN Past Medical History Surgery/Hospitalization HX: STATES HYPOGLYCEMIA, HERNIA Surgeries: Yes Abdominal, Cardiac Respiratory: No Cardiac: No Neurological: No Genitourinary: No Gastrointestinal: Yes Abdominal Hernia Musculoskeletal: No Endocrine: No HEENT: No Cancer: No Psychosocial: No Integumentary: No Blood Disorders: No Family Medical History No Pertinent Family Hx SOCIAL HISTORY: -SMOKED 1 PPD, QUIT 13 YEARS AGO, PER PT ON 10/21/22 -ETOH--OCCASIONAL USE -DRUGS--DENIES USE PAST SURGICAL HISTORY: -HERNIA REPAIR CARDIAC CATH 10/03/[address] JENKINS ANATOMY: Left Main is free of obstructive disease Left Anterior Descending is free of obstructive disease with slow flow in the distal LAD probably due to small vessel disease Left Circumflex is free of obstructive disease Right Coronary Artery is free of obstructive disease LV Gram was not done, pressure was measured CONCLUSION: 1. Mild coronary artery disease small vessel disease in the distal LAD nonobstructive disease 2. Dominant right coronary artery 3. Borderline hypotension and low end-diastolic pressure due to hypovolemia Physical Exam Vital Signs Vital Signs - First Documented 10/21/22 14:47 Temp 36.3 Pulse 70 Resp 16 B/P (MAP) 115/78 (90) Pulse Ox 100 O2 Delivery Room Air Capillary Refill : Height, Weight, BMI Height: '" Weight: lbs. oz. kg; 21.74 BMI Method: General Appearance: No Apparent Distress, WD/WN HEENT: Other (POOR DENTITION) Neck: Normal Inspection Respiratory: Chest Non Tender, Normal Breath Sounds, No Accessory Muscle Use, No Respiratory Distress Cardiovascular: Regular Rate, Rhythm, No Murmur Gastrointestinal: Non Tender, Soft Extremity: Normal Capillary Refill, Pedal Edema (1+ EDEMA ON RIGHT. TRACE EDEMA ON LEFT) Neurologic/Psychiatric: Alert, Oriented x3, No Motor/Sensory Deficits, Normal Mood/Affect, habitat biologist II-XII Norm as Tested Skin: Normal Color, Warm/Dry Progress/Results/Core Measures Results/Orders Lab Results Laboratory Tests Test 10/21/22 15:26 10/21/22 18:47 10/21/22 19:10 Range/Units White Blood Count 4.7 4.3-11.0 10^3/uL Red Blood Count 4.28 L 4.30-5.52 10^6/uL Hemoglobin 12.7 L 13.3-17.7 g/dL Hematocrit 39 L 40-54 % Mean Corpuscular Volume 91 80-99 fL Mean Corpuscular Hemoglobin 30 25-34 pg Mean Corpuscular Hemoglobin Concent 33 32-36 g/dL Red Cell Distribution Width 12.2 10.0-14.5 % Platelet Count 234 130-400 10^3/uL Mean Platelet Volume 9.4 9.0-12.2 fL Immature Granulocyte % (Auto) 0 % Neutrophils (%) (Auto) 52 42-75 % Lymphocytes (%) (Auto) 35 12-44 % Monocytes (%) (Auto) 13 H 0-12 % Eosinophils (%) (Auto) 0 0-10 % Basophils (%) (Auto) 0 0-10 % Neutrophils # (Auto) 2.4 1.8-7.8 10^3/uL Lymphocytes # (Auto) 1.6 1.0-4.0 10^3/uL Monocytes # (Auto) 0.6 0.0-1.0 10^3/uL Eosinophils # (Auto) 0.0 0.0-0.3 10^3/uL Basophils # (Auto) 0.0 0.0-0.1 10^3/uL Immature Granulocyte # (Auto) 0.0 0.0-0.1 10^3/uL Percent Immature Platelet Fraction 1.8 0.0-7.6 % Prothrombin Time 12.8 12.2-14.7 SEC INR Comment 0.9 0.8-1.4 Activated Partial Thromboplast Time 24 24-35 SEC D-Dimer 7.07 H 0.00-0.49 UG/ML Sodium Level 137 135-145 MMOL/L Potassium Level 4.1 3.6-5.0 MMOL/L Chloride Level 107 98-107 MMOL/L Carbon Dioxide Level 26 21-32 MMOL/L Anion Gap 4 L 5-14 MMOL/L Blood Urea Nitrogen 26 H 7-18 MG/DL Creatinine 0.77 0.60-1.30 MG/DL Estimat Glomerular Filtration Rate 101 BUN/Creatinine Ratio 34 Glucose Level 112 H 70-105 MG/DL Calcium Level 8.9 8.5-10.1 MG/DL Corrected Calcium 9.4 8.5-10.1 MG/DL Magnesium Level 1.9 1.6-2.4 MG/DL Total Bilirubin 0.3 0.1-1.0 MG/DL Aspartate Amino Transf (AST/SGOT) 51 H 5-34 U/L Alanine Aminotransferase (ALT/SGPT) 57 H 0-55 U/L Alkaline Phosphatase 58 40-136 U/L Total Creatine Kinase 52 30-200 U/L Creatine Kinase MB 2.0 <6.6 NG/ML Myoglobin 24.8 10.0-92.0 NG/ML Troponin I 0.088 H 0.084 H <0.028 NG/ML B-Type Natriuretic Peptide 20.7 <100.0 PG/ML Total Protein 6.4 6.4-8.2 GM/DL Albumin 3.4 3.2-4.5 GM/DL Amylase Level 68 25-125 U/L Lipase 35 8-78 U/L Serum Alcohol < 10 <10 MG/DL Urine Color YELLOW Urine Clarity CLEAR Urine pH 5.5 5-9 Urine Specific [place] 1.015 L 1.016-1.022 Urine Protein NEGATIVE NEGATIVE Urine Glucose (UA) NEGATIVE NEGATIVE Urine Ketones NEGATIVE NEGATIVE Urine Nitrite NEGATIVE NEGATIVE Urine Bilirubin NEGATIVE NEGATIVE Urine Urobilinogen 1.0 < = 1.0 MG/DL Urine Leukocyte Esterase NEGATIVE NEGATIVE Urine RBC (Auto) NEGATIVE NEGATIVE Urine RBC NONE /HPF Urine WBC NONE /HPF Urine Squamous Epithelial Cells 0-2 /HPF Urine Crystals NONE /LPF Urine Bacteria NEGATIVE /HPF Urine Casts NONE /LPF Urine Mucus NEGATIVE /LPF Urine Culture Indicated NO Urine Opiates Screen NEGATIVE NEGATIVE Urine Oxycodone Screen NEGATIVE NEGATIVE Urine Methadone Screen NEGATIVE NEGATIVE Urine Propoxyphene Screen NEGATIVE NEGATIVE Urine Barbiturates Screen NEGATIVE NEGATIVE Ur Tricyclic Antidepressants Screen NEGATIVE NEGATIVE Urine Phencyclidine Screen NEGATIVE NEGATIVE Urine Amphetamines Screen POSITIVE H NEGATIVE Urine Methamphetamines Screen POSITIVE H NEGATIVE Urine Benzodiazepines Screen NEGATIVE NEGATIVE Urine Cocaine Screen NEGATIVE NEGATIVE Urine Cannabinoids Screen NEGATIVE NEGATIVE My Orders Orders - DOLLY PATELA Renuka DO Ekg Tracing (10/21/22 14:50) Cbc With Automated Diff (10/21/22 14:51) Magnesium (10/21/22 14:51) Chest 1 View, Ap/Pa Only (10/21/22 14:51) Comprehensive Metabolic Panel (10/21/22 14:51) Myoglobin Serum (10/21/22 14:51) Protime With Inr (10/21/22 14:51) Partial Thromboplastin Time (10/21/22 14:51) O2 (10/21/22 14:51) Monitor-Rhythm Ecg Trace Only (10/21/22 14:51) Ed Iv/Invasive Line Start (10/21/22 14:51) Creatine Kinase (10/21/22 14:51) Creatine Kinase Mb (10/21/22 14:51) Lipase (10/21/22 14:51) Amylase (10/21/22 14:51) Bnp Mikael (10/21/22 14:51) Fibrin Degradation Products (10/21/22 14:51) Troponin I [place] (10/21/22 14:51) Nitroglycerin 0.4 Mg Btl 25's (Nitrostat (10/21/22 15:00) Aspirin Chewable Tablet (Baby Aspirin Ch (10/21/22 15:00) Ct Angio Chest W (R/O Pe) (10/21/22 16:31) Iohexol Injection (Omnipaque 350 Mg/Ml 1 (10/21/22 16:45) Ns (Ivpb) (Sodium Chloride 0.9% Ivpb Bag (10/21/22 16:45) Us Venous Lower Ext Herminio (10/21/22 16:55) Alcohol (10/21/22 17:07) Drug Screen Stat (Urine) (10/21/22 17:07) Ua Culture If Indicated (10/21/22 17:07) Ketorolac Injection (Toradol Injection) (10/21/22 17:15) Ekg Tracing (10/21/22 17:58) Troponin I Mikael (10/21/22 17:58) Medications Given in ED Vital Signs/I&O 10/21/22 10/21/22 14:47 20:07 Temp 36.3 Pulse 70 71 Resp 16 20 B/P (MAP) 115/78 (90) 125/80 Pulse Ox 100 98 O2 Delivery Room Air Room Air Progress Progress Note : Progress Note PT WAS GIVEN 324 MG ASPIRIN AT [facility] PRIOR TO ARRIVAL PT INITIALLY RATED HIS PAIN "3 1/2" ON ARRIVAL NTG WAS ORDERED, AND BEFORE NTG WAS GIVEN HE STATES HIS PAIN WAS DOWN TO A "1"--GIVEN NTG X 1 WITH NO RELIEF. PT LATER STATES HE IS PAIN FREE, AND PT IS RESTING QUIETLY/SLEEPING FOR REMAINDER OF ER STAY PT WITH ELEVATED TROPONIN AT 0.088--THIS IS THE EXACT SAME LEVEL IT WAS ON HIS ADMIT IN SEPTEMBER, AND ONLY WENT HIGH 0.092, THEN BACK DOWN TO 0.088 PRIOR TO DISMISSAL AT THAT VISIT. PT DOES HAVE AN ELEVATED D-DIMER, CT CHEST ANGIOGRAM ORDERED, WELL ULTRASOUND OF BOTH LEGS. CT AND ULTRASOUND SHOW NO EVIDENCE OF CLOTS THERE IS NO RISE IN TROPONIN LEVEL. AND NO EKG CHANGES, AND PT REMAINS PAIN-FREE FOR REMAINDER OF ER STAY. REVIEWED ALL TEST RESULTS, ANTICIPATED COURSE, MEDICATIONS, NEED FOR FOLLOW UP AND RETURN PRECAUTIONS DISCUSSED WITH PT WILL START ON PPI FOR POSSIBLE GERD PT HAD BEEN PRESCRIBED ASPIRIN, PLAVIX, AND METOPROLOL WHEN HE WAS HERE IN SEPTEMBER, HE NEVER STARTED ON THOSE MEDICATIONS STRONGLY ADVISED HIM TO START TAKING THOSE MEDICATIONS AND FOLLOW UP WITH CARDIOLOGY ALSO ADDRESSED DRUG USE, AND STRONGLY ENCOURAGED HIM TO STOP, AND DRUG ABUSE TREATMENT INFORMATION WAS GIVEN TO PT, AND ALSO ADVISED HIM THAT [facility] HAD OUTPATIENT SUBSTANCE ABUSE PROGRAM, AND ENCOURAGED HIM TO SEEK TREATMENT. Initial ECG Impression Date: Oct 21, 2022 Initial ECG Impression Time: 14:55 Initial ECG Rate: 66 Initial ECG Rhythm: Normal Sinus Initial ECG Comparisson: Unchanged Comment INTERPRETED BY ME EKG : EKG Time: 18:07 Rate: 62 Rhythm: Normal Sinus ECG Comparisson: Unchanged Comment INTERPRETED BY ME Diagnostic Imaging Comments CXR--PER RADIOLOGIST REPORT AT 1533 Frontal chest obtained at 3:05 p.m. and compared to 10/02/2022. Heart and mediastinal silhouette are normal in appearance. The lungs are clear. There is no pneumothorax or pleural fluid. IMPRESSION: Negative chest. CT CHEST ANGIOGRAM--PER RADIOLOGIST REPORT AT 1735 FINDINGS: There is a moderate-sized hiatal hernia. There is wall thickening involving the distal esophagus. This may be related to esophagitis, but there is significant thickening seen, and a mass should be excluded. There is mild atelectasis in the posterior aspects of both lung bases. The remainder of the lungs are clear. There is no pleural effusion or pneumothorax. Mediastinal regions, bilateral hilar regions, and bilateral axillary regions show no significant lymphadenopathy. The visualized portions of the upper abdominal structures are unremarkable. There is interval development of a subacute fracture involving the anterior aspect of the right T2 rib with callus formation. Stable callus formation involving the anterior aspect of the left T3 rib, which appears chronic. IMPRESSION: 1: There is no evidence of pulmonary embolism. There is no thoracic aortic aneurysmal dilation. 2: There is a subacute fracture involving the anterior aspect of the right T2 rib. There is a chronic appearing stable fracture involving the anterior aspect of the left T3 rib. 3: There is interval development of small amount of centrilobular nodules involving the right lower lobe, which may be related to infectious or inflammatory process. 4: There is mild bibasilar atelectasis. BILATERAL LOWER EXTREMITY DOPPLER/ULTRASOUND--PER RADIOLOGIST REPORT AT 1827 FINDINGS: The imaged bilateral venous vasculature is patent. IMPRESSION: 1. Negative for right or left lower extremity deep venous thrombosis. Reviewed: Reviewed by [facility] Departure Communication (Admissions) [id number]--SPOKE WITH DR. LOPEZ, DIRECTOR OF ENROLLMENT, IF REPEAT TROPONIN AND EKG ARE UNCHANGED, MAY SEND HOME, HIS TROPONIN LEVELS HAVE BEEN CONSISTENTLY THE SAME, HE HAS A NEGATIVE CT CHEST ANGIOGRAM, HAD A CARDIAC CATH 10/03/22 WHICH SHOWED MILD, NON-OBSTRUCTIVE DISEASE, AND HE HAS BEEN PAIN-FREE. ULTRASOUND OF LEGS IS PENDING AT THIS TIME. Impression Primary Impression: Chest pain Additional Impressions: Elevated troponin Methamphetamine abuse Homelessness Elevated d-dimer POSSIBLE GERD Disposition: HOME, SELF-CARE Condition: Improved Departure-Patient Inst. Decision time for Depature: 19:56 Referrals: [facility] [place] (PCP/Family) Primary Care Physician JUAN JENKINS MD Patient Instructions: Acid Reflux and GERD in Adults (DC), Chest Pain (DC), Drug Abuse Treatment, Troponin Test Add. Discharge Instructions: NO DRUGS OR ALCOHOL FOLLOW UP WITH DR. JENKINS, DIRECTOR OF ENROLLMENT, FOR FURTHER CARE--CALL HIS OFFICE IN THE MORNING TO SCHEDULE A FOLLOW UP APPOINTMENT RETURN TO ER IF SYMPTOMS RETURN FOLLOW UP WITH [facility] FOR SUBSTANCE ABUSE TREATMENT AND GENERAL ROUTINE MEDICAL CARE. All discharge instructions reviewed with patient and/or family. Voiced understanding. Scripts Pantoprazole Sodium (Protonix) 40 Mg Tablet. 40 MG PO DAILY, #15 TAB Prov: ALEJANDRA PATEL DO 10/21/22 ALEJANDRA PATEL DO Oct 21, 2022 15:01
--- NOTE | 2022-10-21 15:24 | Diagnostic Imaging Report ---
INDICATION: Chest pain Frontal chest obtained at 3:05 p.m. and compared to 10/02/2022. Heart and mediastinal silhouette are normal in appearance. The lungs are clear. There is no pneumothorax or pleural fluid. IMPRESSION: Negative chest. Dictated by: Dictated on workstation # [id number]
[2022-10-21 15:33] LABS: HEMATOCRIT 39 % (40-54)
[2022-10-21 15:35] LABS: BASOPHILS % (AUTO) 0 % (0-10); EOSINOPHILS % (AUTO) 0 % (0-10); HEMOGLOBIN 12.7 g/dL (13.3-17.7); LYMPHOCYTES # (AUTO) 1.6 10^3/uL (1.0-4.0); LYMPHOCYTES % (AUTO) 35 % (12-44); MEAN CORPUSCULAR HEMOGLOBIN 30 pg (25-34); MEAN CORPUSCULAR HGB CONC 33 g/dL (32-36); MEAN CORPUSCULAR VOLUME 91 fL (80-99); MEAN PLATELET VOLUME 9.4 fL (9.0-12.2); MONOCYTES # (AUTO) 0.6 10^3/uL (0.0-1.0); MONOCYTES % (AUTO) 13 % (0-12); NEUTROPHILS # (AUTO) 2.4 10^3/uL (1.8-7.8); NEUTROPHILS % (AUTO) 52 % (42-75); PLATELET COUNT 234 10^3/uL (130-400); WHITE BLOOD COUNT 4.7 10^3/uL (4.3-11.0)
[2022-10-21 15:57] LABS: ALBUMIN 3.4 GM/DL (3.2-4.5); BILIRUBIN,TOTAL 0.3 MG/DL (0.1-1.0); CALCIUM 8.9 MG/DL (8.5-10.1); CREATININE SERUM 0.77 MG/DL (0.60-1.30); MAGNESIUM 1.9 MG/DL (1.6-2.4); POTASSIUM 4.1 MMOL/L (3.6-5.0); TOTAL PROTEIN 6.4 GM/DL (6.4-8.2)
[2022-10-21 16:05] LABS: INR 0.9 (0.8-1.4); PROTHROMBIN TIME PATIENT 12.8 SEC (12.2-14.7)
[2022-10-21] MEDS ORDERED: IOHEXOL 350 MG/ML 100 ML (OMNIPAQUE 350) VIAL IV ONE (16:45)
[2022-10-21] MEDS ORDERED: NS 100 ML (IVPB) BAG IV ONE (16:45)
[2022-10-21] MEDS ORDERED: KETOROLAC 30 MG/ML VIAL IVP ONE (17:15)
--- NOTE | 2022-10-21 17:16 | Diagnostic Imaging Report ---
CLINICAL INDICATION: Patient with chest pain. No past surgical history or cancer. EXAM: CT angiogram of the chest performed with 75 cc Omnipaque 350 IV. COMPARISON: CT angiogram of the chest dated 10/02/2022. FINDINGS: There is a moderate-sized hiatal hernia. There is wall thickening involving the distal esophagus. This may be related to esophagitis, but there is significant thickening seen, and a mass should be excluded. There is mild atelectasis in the posterior aspects of both lung bases. The remainder of the lungs are clear. There is no pleural effusion or pneumothorax. Mediastinal regions, bilateral hilar regions, and bilateral axillary regions show no significant lymphadenopathy. The visualized portions of the upper abdominal structures are unremarkable. There is interval development of a subacute fracture involving the anterior aspect of the right T2 rib with callus formation. Stable callus formation involving the anterior aspect of the left T3 rib, which appears chronic. IMPRESSION: 1: There is no evidence of pulmonary embolism. There is no thoracic aortic aneurysmal dilation. 2: There is a subacute fracture involving the anterior aspect of the right T2 rib. There is a chronic appearing stable fracture involving the anterior aspect of the left T3 rib. 3: There is interval development of small amount of centrilobular nodules involving the right lower lobe, which may be related to infectious or inflammatory process. 4: There is mild bibasilar atelectasis. Dictated by: Dictated on workstation # [id number]
--- NOTE | 2022-10-21 18:16 | Diagnostic Imaging Report ---
PROCEDURE: US Venous Lower Ext Herminio. TECHNIQUE: Multiple real-time grayscale images were obtained over the lower extremities in various projections, bilaterally. Additional duplex Doppler and color Doppler images were also obtained. DATE: October 21, 2022. INDICATION: 62-year-old male, bilateral lower extremity edema. Positive D-dimer. COMPARISON: None. FINDINGS: The imaged bilateral venous vasculature is patent. IMPRESSION: 1. Negative for right or left lower extremity deep venous thrombosis. Dictated by: Dictated on workstation # [id number]
[2022-10-21 19:04] LABS: BILIRUBIN,URINE NEGATIVE (NEGATIVE); CLARITY,URINE CLEAR; COLOR,URINE YELLOW; GLUCOSE, URINE (UA) NEGATIVE (NEGATIVE); KETONES,URINE NEGATIVE (NEGATIVE); LEUKOCYTE ESTERASE ,URINE NEGATIVE (NEGATIVE); NITRITE,URINE NEGATIVE (NEGATIVE); PH,URINE 5.5 (5-9); PROTEIN,URINE NEGATIVE (NEGATIVE)
[2022-10-21 19:13] LABS: BACTERIA,URINE NEGATIVE /HPF; SQUAMOUS EPITHELIAL CELL,UR 0-2 /HPF
[2022-10-21 19:15] LABS: AMPHETAMINE SCREEN, URINE POSITIVE (NEGATIVE); BARBITURATE SCREEN URINE NEGATIVE (NEGATIVE); BENZODIAZEPINES SCREEN URINE NEGATIVE (NEGATIVE); CANNABINOID SCREEN, URINE NEGATIVE (NEGATIVE); COCAINE SCREEN URINE NEGATIVE (NEGATIVE); METHADONE STAT NEGATIVE (NEGATIVE); OPIATE SCREEN URINE NEGATIVE (NEGATIVE); OXYCODONE STAT NEGATIVE (NEGATIVE); PROPOXYPHENE STAT NEGATIVE (NEGATIVE); TRICYCLIC ANTIDEPRESSANTS SCRE NEGATIVE (NEGATIVE)
[2022-10-21] MEDS ORDERED: PANT40TA2 PO (19:57)
[2022-10-21 20:07] VITALS: BP 125/80
== END 2022-10-21 20:07 | disposition home or self-care (01) ==
LOC: EDUNIT# 14:44 → ER 14:46
DX: R07.9 Chest pain, unspecified (principal); F15.10 Other stimulant abuse, uncomplicated; R77.8 Other specified abnormalities of plasma proteins; R79.1 Abnormal coagulation profile; Z59.00 Homelessness unspecified; Z87.891 Personal history of nicotine dependence; Z28.311 Partially vaccinated for COVID-19
CPT/HCPCS: 71045; 71275; 80053; 80306; 81000; 82150; 82550; 82553; 83690; 83735; 83874; 83880; 84484; 85025; 85379; 85610; 85730; 93041; 93970; G0480; 36415; 80320; 93005

== ENCOUNTER 2023-02-16 00:30 | Emergency (ER) | payer SELFPAY ==
[~2023-02-16 00:30] MED LIST changes: +PANT40TA2 PO
[2023-02-16 01:14] LABS: BASOPHILS % (AUTO) 0 % (0-10); EOSINOPHILS % (AUTO) 0 % (0-10); HEMATOCRIT 41 % (40-54); HEMOGLOBIN 13.4 g/dL (13.3-17.7); LYMPHOCYTES # (AUTO) 2.3 10^3/uL (1.0-4.0); LYMPHOCYTES % (AUTO) 41 % (12-44); MEAN CORPUSCULAR HEMOGLOBIN 28 pg (25-34); MEAN CORPUSCULAR HGB CONC 33 g/dL (32-36); MEAN CORPUSCULAR VOLUME 85 fL (80-99); MEAN PLATELET VOLUME 9.5 fL (9.0-12.2); MONOCYTES # (AUTO) 0.8 10^3/uL (0.0-1.0); MONOCYTES % (AUTO) 14 % (0-12); NEUTROPHILS # (AUTO) 2.5 10^3/uL (1.8-7.8); NEUTROPHILS % (AUTO) 45 % (42-75); PLATELET COUNT 305 10^3/uL (130-400); WHITE BLOOD COUNT 5.5 10^3/uL (4.3-11.0)
[2023-02-16 01:20] LABS: POTASSIUM 3.1 MMOL/L (3.6-5.0)
[2023-02-16 01:21] LABS: ALBUMIN 3.8 GM/DL (3.2-4.5)
[2023-02-16 01:22] LABS: CALCIUM 9.1 MG/DL (8.5-10.1)
[2023-02-16 01:23] LABS: TOTAL PROTEIN 7.3 GM/DL (6.4-8.2)
[2023-02-16 01:25] LABS: BILIRUBIN,TOTAL 0.5 MG/DL (0.1-1.0)
[2023-02-16 01:27] LABS: CREATININE SERUM 1.23 MG/DL (0.60-1.30)
[2023-02-16 01:30] LABS: MAGNESIUM 2.4 MG/DL (1.6-2.4)
[2023-02-16 01:31] LABS: SALICYLATE < 5.0 MG/DL (5.0-20.0)
[2023-02-16 01:32] LABS: ACETAMINOPHEN < 10 UG/ML (10-30)
--- NOTE | 2023-02-16 02:05 | ED General ---
General Chief Complaint: General Problems/Pain Stated Complaint: CP Nursing Triage Note: Pt presents via EMS with c/o not being able to breathe. EMS reports he rode his bike to [employer] and they called 911 due to him groaning and pointing to his chest. Pt not answering questions, he's sitting in bed groaning. Dr. Murray in room to assess. Pt states he's smoke powders and drank 2 beers tonight. Source of Information: Patient, EMS Exam Limitations: Intoxication History of Present Illness Date Seen by Provider: February 16, 2023 Time Seen by Provider: 00:45 Initial Comments Arrives via EMS with a complaints of not being able to breathe and chest pain. Admits to using some drugs tonight and drinking alcohol all. States he smokes some powder but does not state what exactly that was. States he is homeless. He is moving about the bed and moaning but does not answer questions well. He is able to answer when directed and are redirected. EMS reports they were called to the scene this patient with complaint of chest pain. They note normal vital signs. They did initiate 324 mg of aspirin due to chest pain and did do EKG which did not show any concerning rhythms further interpretation. The patient does not answer review of system questions well. He appears he may have some nausea. Timing/Duration: 1 Hour Severity: Moderate Associated Systoms: Chest Pain; No Nausea/Vomiting; Shortness of Air, Weakness Allergies and Home Medications Allergies Coded Allergies: Penicillins (Verified Allergy, Unknown, 10/02/22) Patient Home Medication List Home Medication List Reviewed: Yes Aspirin (Aspirin EC) 81 Mg Tablet., 81 MG PO DAILY Prescribed by: SHERI ALVAREZ on 10/03/22 1245 Clopidogrel Bisulfate (Clopidogrel) 75 Mg Tablet, 75 MG PO DAILY Prescribed by: SHERI ALVAREZ on 10/03/22 1245 Metoprolol Succinate (Metoprolol Succinate) 25 Mg Tab.er.24h, 25 MG PO DAILY Prescribed by: SHERI ALVAREZ on 10/03/22 1245 Pantoprazole Sodium (Protonix) 40 Mg Tablet., 40 MG PO DAILY Prescribed by: ALEJANDRA PATEL on 10/21/221956 Review of Systems Review of Systems Constitutional: No chills, No fever Cardiovascular: chest pain Gastrointestinal: No nausea, No vomiting Psychiatric/Neurological: Anxiety Limited review of systems due to patient's current mental status and clinical condition. Past [id number]-[id number] Hx Patient Social History Tobacco Use?: No Smoking Status: Former Smoker Substance use?: Yes Substance type: Methamphetamine Substance frequency: Rarely Alcohol Use?: Yes Alcohol Frequency: Once in a while Immunizations Up To Date First/Initial COVID19 Vaccinat: UNKNOWN Second COVID19 Vaccination Dylon: UNKNOWN Third COVID19 Vaccination Date: UNKNOWN Past Medical History Surgery/Hospitalization HX: STATES HYPOGLYCEMIA, HERNIA Surgeries: Yes Abdominal, Cardiac Respiratory: No Cardiac: No Neurological: No Genitourinary: No Gastrointestinal: Yes Abdominal Hernia Musculoskeletal: No Endocrine: No HEENT: No Cancer: No Psychosocial: No Integumentary: No Blood Disorders: No Family Medical History No Pertinent Family Hx SOCIAL HISTORY: -SMOKED 1 PPD, QUIT 13 YEARS AGO, PER PT ON 10/21/22 -ETOH--OCCASIONAL USE -DRUGS--DENIES USE PAST SURGICAL HISTORY: -HERNIA REPAIR CARDIAC CATH 10/03/[address] JENKINS ANATOMY: Left Main is free of obstructive disease Left Anterior Descending is free of obstructive disease with slow flow in the distal LAD probably due to small vessel disease Left Circumflex is free of obstructive disease Right Coronary Artery is free of obstructive disease LV Gram was not done, pressure was measured CONCLUSION: 1. Mild coronary artery disease small vessel disease in the distal LAD nonobstructive disease 2. Dominant right coronary artery 3. Borderline hypotension and low end-diastolic pressure due to hypovolemia Physical Exam Vital Signs Vital Signs - First Documented 02/16/23 00:34 Temp 36.6 Pulse 77 Resp 20 B/P (MAP) 106/64 (78) Capillary Refill : Less Than 3 Seconds Height, Weight, BMI Height: '" Weight: lbs. oz. kg; 22.00 BMI Method: General Appearance: Mild Distress, Moderate Distress HEENT: PERRL/EOMI, Pharynx Normal Neck: Non Tender, Supple Respiratory: Lungs Clear, Normal Breath Sounds Cardiovascular: Regular Rate, Rhythm, No Murmur Gastrointestinal: Non Tender, Soft Back: Normal Inspection, No CVA Tenderness, No Vertebral Tenderness Extremity: Normal Range of Motion, Non Tender, No Calf Tenderness, No Pedal Edema Neurologic/Psychiatric: Alert, Other (Very anxious and not answering questions well.) Skin: Normal Color, Warm/Dry Progress/Results/Core Measures Suspected Sepsis SIRS Temperature: Pulse: 77 Respiratory Rate: 20 Laboratory Tests 02/16/23 00:50: White Blood Count 5.5 Blood Pressure 106 /64 Mean: 78 Laboratory Tests 02/16/23 00:50: Creatinine 1.23, Platelet Count 305, Total Bilirubin 0.5 Results/Orders Lab Results Laboratory Tests Test 02/16/23 00:50 02/16/23 04:50 Range/Units White Blood Count 5.5 4.3-11.0 10^3/uL Red Blood Count 4.79 4.30-5.52 10^6/uL Hemoglobin 13.4 13.3-17.7 g/dL Hematocrit 41 40-54 % Mean Corpuscular Volume 85 80-99 fL Mean Corpuscular Hemoglobin 28 25-34 pg Mean Corpuscular Hemoglobin Concent 33 32-36 g/dL Red Cell Distribution Width 14.9 H 10.0-14.5 % Platelet Count 305 130-400 10^3/uL Mean Platelet Volume 9.5 9.0-12.2 fL Immature Granulocyte % (Auto) 0 % Neutrophils (%) (Auto) 45 42-75 % Lymphocytes (%) (Auto) 41 12-44 % Monocytes (%) (Auto) 14 H 0-12 % Eosinophils (%) (Auto) 0 0-10 % Basophils (%) (Auto) 0 0-10 % Neutrophils # (Auto) 2.5 1.8-7.8 10^3/uL Lymphocytes # (Auto) 2.3 1.0-4.0 10^3/uL Monocytes # (Auto) 0.8 0.0-1.0 10^3/uL Eosinophils # (Auto) 0.0 0.0-0.3 10^3/uL Basophils # (Auto) 0.0 0.0-0.1 10^3/uL Immature Granulocyte # (Auto) 0.0 0.0-0.1 10^3/uL Sodium Level 140 135-145 MMOL/L Potassium Level 3.1 L 3.6-5.0 MMOL/L Chloride Level 104 98-107 MMOL/L Carbon Dioxide Level 18 L 21-32 MMOL/L Anion Gap 18 H 5-14 MMOL/L Blood Urea Nitrogen 48 H 7-18 MG/DL Creatinine 1.23 0.60-1.30 MG/DL Estimat Glomerular Filtration Rate 66 BUN/Creatinine Ratio 39 Glucose Level 116 H 70-105 MG/DL Calcium Level 9.1 8.5-10.1 MG/DL Corrected Calcium 9.3 8.5-10.1 MG/DL Magnesium Level 2.4 1.6-2.4 MG/DL Total Bilirubin 0.5 0.1-1.0 MG/DL Aspartate Amino Transf (AST/SGOT) 49 H 5-34 U/L Alanine Aminotransferase (ALT/SGPT) 38 0-55 U/L Alkaline Phosphatase 60 40-136 U/L Troponin I 0.060 H 0.052 H <0.028 NG/ML C-Reactive Protein High Sensitivity 0.10 0.00-0.50 MG/DL Total Protein 7.3 6.4-8.2 GM/DL Albumin 3.8 3.2-4.5 GM/DL Salicylates Level < 5.0 L 5.0-20.0 MG/DL Acetaminophen Level < 10 L 10-30 UG/ML Serum Alcohol 92 H <10 MG/DL My Orders Orders - RONDA MURRAY MD Acetaminophen (02/16/23 00:49) Alcohol (02/16/23 00:49) Cbc With Automated Diff (02/16/23 00:49) Comprehensive Metabolic Panel (02/16/23 00:49) Hs C Reactive Protein (02/16/23 00:49) Drug Screen Stat (Urine) (02/16/23 00:49) Magnesium (02/16/23 00:49) Salicylate (02/16/23 00:49) Troponin I [place] (02/16/23 00:49) Ua Culture If Indicated (02/16/23 00:49) Ed Iv/Invasive Line Start (02/16/23 00:49) Ekg Tracing (02/16/23 00:49) O2 (02/16/23 00:49) Monitor-Rhythm Ecg Trace Only (02/16/23 00:49) Chest 1 View, Ap/Pa Only (02/16/23 00:49) Arterial Blood Gas (02/16/23 00:52) Lactated Ringers (Lr 1000 Ml Iv Solution (02/16/23 04:30) Troponin I [place] (02/16/23 04:22) Medications Given in ED Current Medications Medications Dose Ordered Sig/Moody Route Start Time Stop Time Status Last Admin Dose Admin Lactated Ringer's 1,000 ml @ 0 mls/hr Q0M ONCE IV 02/16/23 04:30 02/16/23 04:31 DC 02/16/23 04:59 0 MLS/HR Vital Signs/I&O 02/16/23 00:34 Temp 36.6 Pulse 77 Resp 20 B/P (MAP) 106/64 (78) Capillary Refill : Less Than 3 Seconds Blood Pressure Mean: 78 Progress Note : Progress Note Seen and evaluated. Chest pain protocol initiated. CBC, CMP, troponin, alcohol, drug screen, acetaminophen and salicylate ordered. Monitor patient. Differential diagnosis includes cardiac event, chest wall pain, toxic effect of drugs 0400: Troponin is noted to be elevated at 0.06. He does have previous heart cath which shows essentially no significant disease and is summarized below from heart cath done in September 2022. CBC reviewed and shows no significant abnormality. CMP reviewed and shows low potassium, slightly elevated liver enzymes, elevated anion gap and elevated BUN with normal but elevated serum creatinine. Drug screen pending. Acetaminophen and salicylate are negative and alcohol is elevated at 92. Patient resting peacefully at this time. Chest x- ray shows no acute findings on my interpretation. We are pending drug screen. Monitor patient. Heart cath done September 2022 results noted below. CONCLUSION: 1. Mild coronary artery disease small vessel disease in the distal LAD nonobstructive disease 2. Dominant right coronary artery 3. Borderline hypotension and low end-diastolic pressure due to hypovolemia DISCUSSION AND RECOMMENDATION: Troponin level is probably due to hypotension and hypovolemia. No obstructive coronary artery disease was noted Anesthesia Type: Conscious Sedation Estimated blood loss (mL): 10 ml Contrast Amount: 20 ml Total Radiation Dose: 154 mGy Post-Procedure Diagnosis Post-operative diagnosis: Chest pain Type II myocardial infarction Hypotension 0600: Repeat troponin was ordered as first 1 was slightly elevated. Troponin has declined to 0.052 which is down from previous. Patient has been resting peacefully throughout the night without any distress. Given his negative heart cath within the last 6 months, normal vital signs and grossly unremarkable other findings, admission is not indicated. We will monitor him till sobriety and then discharge unless something else changes. He has still not given urine sample. We have initiated LR 1 L bolus. Monitor patient. 0624: Patient is awake now. He is feeling better. We did discuss methamphetamine use and how this is hard on his heart. He agrees. He is not in any chest pain now. We will give him something to eat and then will let him go. Overall he is feeling much better and reassured. Discharged home with return precautions. Patient verbalized understanding instructions and agreement with plan. ECG Initial ECG Impression Date: February 16, 2023 Initial ECG Impression Time: 01:06 Initial ECG Rate: 67 Initial ECG Rhythm: Normal Sinus Comment Sinus rhythm with normal axis. No evidence of ST elevation GA. T waves flat. Interpreted by me. Diagnostic Imaging Diagonstic Imaging: Xray Plain Films/CT/US/NM/MRI: chest Comments No acute findings on my interpretation. Pending radiology report. Reviewed: Reviewed by Me Departure Impression Primary Impression: Chest pain Qualified Codes: R07.9 - Chest pain, unspecified Additional Impression: Methamphetamine abuse Disposition: HOME, SELF-CARE Condition: Improved Departure-Patient Inst. Decision time for Depature: 06:25 Referrals: [facility] (PCP/Family) Primary Care Physician KARTIK DECKER MD FACP FACC CCDS Patient Instructions: Chest Pain (DC), Methamphetamine Add. Discharge Instructions: All discharge instructions reviewed with patient and/or family. Voiced understanding. You should avoid methamphetamine as this is toxic to your heart. 3 plenty of fluids. Follow-up with your doctor in a few days for recheck. Follow-up with drug safety physician listed or of your choosing as needed for recheck and further evaluation. Return for worse pain, fever, vomiting, weakness, breathing problems or other concerns as needed. RONDA MURRAY MD February 16, 2023 02:05
[2023-02-16] MEDS ORDERED: LACTATED RINGERS 1,000 ML IV ONE (04:30)
--- NOTE | 2023-02-16 07:10 | Diagnostic Imaging Report ---
INDICATION: Chest pain with altered mental status. COMPARISON: 10/31/2022. DISCUSSION: Single portable upright view of the chest was obtained. The lungs remain hyperinflated. Normal heart size. No consolidation, pleural fluid, or pneumothorax. No osseous abnormality. IMPRESSION: 1. Stable negative chest. Dictated by: Dictated on workstation # [id number]
[2023-02-16 07:35] VITALS: BP 161/81
== END 2023-02-16 07:50 | disposition home or self-care (01) ==
LOC: EDUNIT# 00:30 → ER 00:34
DX: R07.9 Chest pain, unspecified (principal); F15.10 Other stimulant abuse, uncomplicated; E87.6 Hypokalemia; R79.89 Other specified abnormal findings of blood chemistry; I95.81 Postprocedural hypotension; I97.191 Other postprocedural cardiac functional disturbances following other surgery; I21.9 Acute myocardial infarction, unspecified; Z87.891 Personal history of nicotine dependence
CPT/HCPCS: 71045; 80053; 83735; 84484; 85025; 86141; 93005; 93041; 99284; G0480 ×3; 36415; 80320; 80329